=== PATIENT | male | born 1985 | race Caucasian/White ===

== ENCOUNTER 2023-12-29 03:43 | Inpatient (IN) | payer MEDICAID, SELFPAY ==
--- NOTE | 2023-12-29 | ECG_ITS ---
Test Reason : chest pain Blood Pressure : / mmHG Vent. Rate : 086 BPM Atrial Rate : 086 BPM P-R Int : 180 ms QRS Dur : 100 ms QT Int : 342 ms P-R-T Axes : 047 -17 021 degrees QTc Int : 409 ms Normal sinus rhythm Normal ECG No previous ECGs available Referred By: Generic ED Physician Electronically Signed By:Jose Merlos
--- NOTE | ~2023-12-29 | XR_ITS ---
EXAMINATION: XR chest 1V CLINICAL INFORMATION: Reason for Exam sob/flu COMPARISON: No prior chest x-ray available. TECHNIQUE: Single portable frontal view. Tubes and lines: None Lungs and pleura: Opacity probably infiltrate/atelectasis right lung base, possible right pleural effusion.. Heart and mediastinum: The mediastinum is within normal limits.. Bones/soft tissue: Skeletal structures included are normal for patient's age. XR/XR chest 1V IMPRESSION: 1. Opacity probably infiltrate/atelectasis right lung base, possible right pleural effusion. 2. Consider follow-up chest x-ray one month after completion of treatment.
--- NOTE | ~2023-12-29 | CT_ITS ---
EXAMINATION: CT chest wo IV con. CLINICAL INFORMATION: Reason for Exam Hypoxia right pneumonia/fusion COMPARISON: Chest x-ray same day earlier TECHNIQUE: Multidetector volumetric CT imaging of the chest was done. Axial MIP volume rendering provided. Sagittal and coronal reformatted images were obtained. This CT examination was performed using dose optimization techniques as appropriate, variously including the following: *Automated exposure control *Adjustment of mA and/or kV according to patient size (this includes techniques or standardized protocols for targeted exams where dose is matched to indication/reason for exam; i.e. extremities or head) *Use of iterative reconstruction technique CONTRAST: Noncontrasted study. DLP: 400 mGy-cm FINDINGS: TABLE TENDER SLUDGE: LINES/TUBES: Supervising Fire Marshal reviewed, no lines. LUNGS: Lung parenchyma: There is dense consolidation infiltrate with air bronchogram involving middle lobe and right lower lobe, mild patchy infiltrates of the right upper lobe, the pattern is most likely pneumonia. Lung nodules/masses: Nodular opacity left upper lobe 1 cm, this could be another patchy infiltrate given the disease of the right lung versus lung nodule. Otherwise left lung is mostly spared. AIRWAYS: Trachea and bronchi are normal. PLEURA: Negative trace amount of right pleural effusion. No pneumothorax. MEDIASTINUM AND ANTHONY: There is rather difficult to assess for lymphadenopathy given the lack of contrast however there are detected enlarged mediastinal lymph node measuring 1.2 x 1.7 cm on image 16 series 2. Fullness of the right anthony probably underlying hilar adenopathy difficult to distinguish from adjacent vessels. VESSELS: HEART AND PERICARDIUM: Thoracic aorta is normal in size. Heart is normal in size. No pericardial effusion. Pulmonary arteries are normal in size. LOWER NECK, AXILLA: The visualized thyroid gland is unremarkable. No axillary mass or adenopathy. VISUALIZED ABDOMEN: Unremarkable CHEST WALL AND BONES: No chest wall mass. The visualized bony thorax is within normal limits. CT/CT chest wo IV con IMPRESSION: 1. Dense consolidation right middle lobe and right lower lobe, mild patchy infiltrates of the right upper lobe, the pattern is most likely pneumonia. 2. There is a nodular opacity left upper lobe 1 cm, this could be infiltrate given the disease of the right lung versus lung nodule. Attention to short-term follow-up chest CT in 3 months recommended. 3. Trace amount of right pleural effusion. 4. Mediastinal lymphadenopathy. Fullness of the right anthony probably underlying hilar adenopathy difficult to distinguish from adjacent vessels.
[2023-12-29 03:55] VITALS: BP 157/96; PULSE 89; RESP 18; TEMP 36.9; O2SAT 98; BMI 37.9
--- NOTE | 2023-12-29 04:20 | MHC.EDTECH ---
Patient ekg taken and was read by Provider ,blood drawn and sent to lab ,Patient refused covid swab ,stated he does not think Covid is real .
[2023-12-29 04:21] LABS: MANUAL DIFF FLAG NO
[2023-12-29 04:22] LABS: Basophils Percent Auto 0.2 % (0-2); Eosinophils Percent Auto 0.1 % (0-4); Hematocrit 43.9 % (42.0-52.0); Hemoglobin 14.9 g/dl (14.0-18.0); Imm Gran Abs Auto 0.02 X10*3/uL (0.00-0.03); Imm Gran Pct Auto 0.2 % (0.0-0.4); Lymphocytes Absolute Auto 1.8 X10*3/uL (1.2-4.9); Lymphocytes Percent Auto 20.6 % (20-40); Mean Corpuscular HGB Conc 33.9 g/dl (31.0-36.0); Mean Corpuscular Hemoglobin 28.1 pg (27.0-33.0); Mean Corpuscular Volume 82.7 fL (80.0-98.0); Mean Platelet Volume 9.2 fL (9.4-12.4); Monocytes Absolute Auto 0.5 X10*3/uL (0.1-1.2); Monocytes Percent Auto 5.7 % (2-11); Neutrophils Absolute Auto 6.3 x10*3/uL (2.0-8.3); Neutrophils Percent Auto 73.2 % (45-73); Platelet Count 181 X10*3/uL (160-400); Red Blood Count 5.31 X10*6/uL (4.60-5.80); Red Cell Distribution Width 12.3 % (11.0-16.0); White Blood Count 8.6 X10*3/uL (4.8-10.8)
[2023-12-29 04:39] LABS: Alanine Aminotransferase 55 U/L (0-40); Albumin Level 4.7 g/dL (3.5-5.0); Alkaline Phosphatase 69 U/L (39-117); Anion Gap 17 (12-20); Aspartate Amino Transferase 46 U/L (5-37); Bilirubin Total 0.7 mg/dL (0.0-1.0); Blood Urea Nitrogen 15 mg/dL (9-16); Calcium 9.3 mg/dL (8.4-10.2); Carbon Dioxide 23 mmol/L (22-29); Chloride 102 mmol/L (96-108); Creatinine Clr Calc Pharmacy 135.1; Estimated Glomerular Filt Rate > 60; Ethanol < 10 mg/dL; Glucose Random 88 mg/dL (60-115); Potassium 3.9 mmol/L (3.3-5.1); Sodium 138 mmol/L (135-145); Total Protein 8.7 g/dL (6.5-8.0)
[2023-12-29 04:42] LABS: Troponin-I High Sensitivity < 2.7 ng/L (<3.5-35.0)
--- NOTE | 2023-12-29 05:13 | ED.PSYCH ---
HPI - Psych General Chief Complaint: Psychiatric Symptoms Stated Complaint: hallucination/paranoia, endorses CP Time Seen by Provider: 12/29/23 04:44 Source: patient Mode of arrival: ambulatory Limitations: no limitations History of Present Illness HPI Narrative: 38 yo male with PMH of depression and substance abuse here with c/o SI and drug abuse some vague chest pains came here from [place] to do drugs he states has been using heroin and crack no IVDA now states he is hallucinating. He states his left him and he lost his kids. He hasn't taken his suboxone in 2 days. MD complaint: suicidal ideation, feels depressed, anxiety, substance abuse and hallucinations Onset (ago): day(s) (2) Duration: intermittent History of same: Yes Relieving factors: none Exacerbating factors: drug use Context: recent drug abuse and significant life stressor Associated psychiatric symptoms: suicidal ideation, auditory hallucinations and visual hallucinations Associated symptoms: denies other symptoms Treatments prior to arrival: none If self harm: admits thoughts of self harm Related Data Home Medications Medication Instructions Recorded Confirmed No Known Home Meds 12/29/23 12/29/23 Allergies Allergy/AdvReac Type Severity Reaction Status Date / Time No Known Allergies Allergy Verified 12/29/23 03:55 Review of Systems Review of Systems: Constitutional : No Fever, No Chills ENT/Mouth : No Ear Pain, No Nasal Congestion, No sore throat Eyes: No Eye Pain, No Swelling, No Redness Cardiovascular : pos Chest Pain, No SOB Respiratory : No Cough, No Sputum, No Dyspnea Gastrointestinal : No Nausea, No Vomiting, No Diarrhea, No Hematochezia, No Melena Genitourinary : No Dysuria, No Urinary Frequency, No Hematuria Musculoskeletal : No Myalgias Skin : No Skin Lesions, No rash Neuro : No Weakness, No Numbness, No Paresthesias, No Dizziness, No Headache Psych : positive Anxiety, positive Depression, positive SI no HI, pos AH Heme/Lymph: No Lymphadenopathy Endocrine : No Polyuria, No Polydipsia All other systems reviewed and are negative PMFSH Past Medical History Attestation statement: The following information was validated with the patient. Medical History Active substance abuse Social History Social History (Updated 12/29/23 @ 05:16 by Jeannette Fernando DO) Patient Tobacco Use Status: Current someday Tobacco user Substance Use Type: Crack/Cocaine and Heroin Advance Directives: No Advance Directives Information Provided: No Physical Exam Vital Signs: Vital Signs: Last Vital Signs Temp 98.4 F 12/29/23 03:55 Pulse 89 12/29/23 03:55 Resp 18 12/29/23 03:55 BP 157/96 H 12/29/23 03:55 Pulse Ox 98 12/29/23 03:55 O2 Del Method Room Air 12/29/23 03:55 BMI result Body Mass Index 37.9 Appearance: Alert. Oriented X3. No acute distress. Agitated at times Eyes: Pupils equal, round and reactive to light. ENT: Pharynx normal. Neck: Normal inspection. Neck supple. CVS: Normal heart rate and rhythm. Pulses normal. Respiratory: No respiratory distress. Breath sounds normal. Abdomen: Soft and nontender. Skin: Skin warm and dry. Normal skin color. Normal skin turgor. Extremities: No lower extremity edema. No calf ttp Neuro: Oriented X 3. No motor deficit. No sensory deficit. CN2-12 intact Medications Administered Discontinued Medications Generic Name Dose Route Start Last Admin Trade Name Freq PRN Reason Stop Dose Admin Lorazepam 2 mg 12/29/23 05:11 12/29/23 05:16 Lorazepam 1 Mg Tablet PO 12/29/23 05:12 2 mg ONCE ONE Administration Olanzapine 5 mg 12/29/23 05:11 12/29/23 05:16 Olanzapine Odt 10 Mg Tab.Rapdis TRANSLINGU 12/29/23 05:12 5 mg ONCE ONE Administration Medical Decision Making Medical Decision Making [facility] Narrative: 38 yo male with PMH of drug abuse and depression here with c/o using drugs and losing his family - at this time labs, PO medications and CARE team consult. Differential Diagnosis Differential Diagnoses: The differential diagnosis associated with the presentation includes depression, substance abuse disorder Admission/Observation Consideration of admission/observation: Escalation of care including admission/observation considered observation started at 514am - PO medications ordered will need to be observed until CARE team can assess the patient for possible inpatient stay. Lab Data [facility] Lab Attestation statement: I reviewed the patient's lab results. 12/29/23 04:17 12/29/23 04:17 Labs: Lab Results 12/29/23 12/29/23 Range/Units 04:17 05:19 WBC 8.6 (4.8-10.8) X10*3/uL RBC 5.31 (4.60-5.80) X10*6/uL Hgb 14.9 (14.0-18.0) g/dl Hct 43.9 (42.0-52.0) % MCV 82.7 (80.0-98.0) fL MCH 28.1 (27.0-33.0) pg MCHC 33.9 (31.0-36.0) g/dl RDW 12.3 (11.0-16.0) % Plt Count 181 (160-400) X10*3/uL MPV 9.2 L (9.4-12.4) fL Immature Gran % (Auto) 0.2 (0.0-0.4) % Neut % (Auto) 73.2 H (45-73) % Lymph % (Auto) 20.6 (20-40) % [place] % (Auto) 5.7 (2-11) % Eos % (Auto) 0.1 (0-4) % Baso % (Auto) 0.2 (0-2) % Lymph # (Auto) 1.8 (1.2-4.9) X10*3/uL [place] # (Auto) 0.5 (0.1-1.2) X10*3/uL Eos # (Auto) 0.0 (0.0-0.4) X10*3/uL Baso # (Auto) 0.0 (0.0-0.2) X10*3/uL Abs Immat Gran (auto) 0.02 (0.00-0.03) X10*3/uL Absolute Neuts (auto) 6.3 (2.0-8.3) x10*3/uL Absolute Nucleated RBC 0.000 (0.0-0.012) X10*3/uL Nucleated RBC % (auto) 0.0 (0.0-0.2) /100WBC Sodium 138 (135-145) mmol/L Potassium 3.9 (3.3-5.1) mmol/L Chloride 102 (96-108) mmol/L Carbon Dioxide 23 (22-29) mmol/L Anion Gap 17 (12-20) BUN 15 (9-16) mg/dL Creatinine 0.84 (0.5-1.4) mg/dL Estim Creat Clear Calc 135.1 Estimated GFR > 60 Random Glucose 88 (60-115) mg/dL Calcium 9.3 (8.4-10.2) mg/dL Total Bilirubin 0.7 (0.0-1.0) mg/dL AST 46 H (5-37) U/L ALT 55 H (0-40) U/L Alkaline Phosphatase 69 (39-117) U/L Troponin I High Sens < 2.7 (<3.5-35.0) ng/L Total Protein 8.7 H (6.5-8.0) g/dL Albumin 4.7 (3.5-5.0) g/dL Ethyl Alcohol < 10 mg/dL COVID-19 (MICHAEL) Negative (Negative) COVID-19 Clin Com See Note Independent Interpretation I performed an independent interpretation of an: EKG Interpretation: Rate: 86 Rhythm: NSR Lincoln: left Normal P waves. Normal SCOTT. Normal QRS complex. ST T wave : normal no BRANDT qTC: 409 prior studies: no acute ischemia The study has been interpreted contemporaneously by me. . Social Determinants Patient?s care significantly limited by Social Determinants of Health including: Inadequate housing, Problems related to primary support group and Unemployment Discharge Plan Discharge Clinical Impression: Active substance abuse Patient Disposition: Still a Patient Prescriptions: No Action No Known Home Meds Interventions: Lea-Suicide Risk Severity Scale Last Done: 12/29/23 04:37
[2023-12-29] MEDS: LORazepam 1 MG TABLET 2 MG PO (05:16)
[2023-12-29] MEDS: OLANZapine ODT 10 MG TAB.RAPDIS 5 MG TRANSLINGU (05:16)
--- NOTE | 2023-12-29 05:27 | PC.NURSE ---
PT arrived from waiting room. Belongings inventoried and secured by security. PT changed over into [facility] gown and oriented to unit. PT tearful and noting SI r/t leaving him three days ago due to drug use. PT denies a plan at this time. Safety precautions in place. Plan of care ongoing.
[2023-12-29 05:42] LABS: COVID-19 Test Negative (Negative); IDNOW Serial# 152EDE1D
[2023-12-29 05:48] LABS: Appearance Urine Clear; Color Urine Dark Yellow; Glucose Urine UA Negative (Negative); Leukocyte Esterase Urine Negative (Negative); Nitrite Urine Negative (Negative); PH 5.5 (5.0-9.0); Specific Gravity - Urine >= 1.030 (1.005-1.025); UMIC TRIGGER UACC YES; Urine Blood Trace (Negative); Urine Ketones 80 mg/dL (Negative); Urine Protein 30 (1+) mg/dL (Neg-Trace)
[2023-12-29 05:53] LABS: Bacteria Urine None Seen (None Seen); Hyaline Casts Urine 0-2 /LPF (0-2); Squamous Epithelial Cell Urine 0-2 /HPF (0-2); WBC Urine 0-5 /HPF (0-5)
[2023-12-29 05:59] LABS: Amphetamine Screen Urine Not Detected (Not Detect); Barbiturates, Urine Not Detected (Not Detect); Benzodiazepines Screen Urine Not Detected (Not Detect); Cannabinoid Screen Urine Not Detected (Not Detect); Cocaine Screen Urine POSITIVE (Not Detect); Fentanyl, urine POSITIVE (Not Detect); Opiate Screen Urine POSITIVE (Not Detect); Phencyclidine Screen Urine Not Detected (Not Detect)
--- NOTE | 2023-12-29 09:14 | PC.NURSE ---
pt sleeping but moaning occasionally in his sleep, attempted x 3 to talk with pt about how he is feeling, pt awakens briefly and chooses not to speak with me, Zayra from recovery and the CARE team also attempted but pt did not speak with them either, pt had po meds at 0500, will continue to attempt to speak with him but will allow him to sleep for now
--- NOTE | 2023-12-29 14:15 | PC.NURSE ---
pt continues to sleep, awakens briefly and then back to sleep without engaging
[2023-12-29 14:21] VITALS: BP 148/73; PULSE 120; RESP 16; TEMP 38.3; O2SAT 97
--- NOTE | 2023-12-29 14:29 | MHC.CARE ---
This proposal writer reached out to [facility] for collateral contacts/ history. They report no emergency contact on file from his assessment in 2021, for which he was deemed appropriate for detox, but ultimately declined and was discharged.?
[2023-12-29] MEDS: Acetaminophen 325 MG TABLET 975 MG PO ×2 (14:35→21:27)
[2023-12-29 14:53] LABS: IDNOW Serial# 9DB6401D; Influenza A Positive (Negative); Influenza B2 Negative (Negative)
--- NOTE | 2023-12-29 14:53 | PC.NURSE ---
pt awoke and c/o body aches and withdrawl from opiates, recovery team spoke with him, pt tachy and febrile and apap given and flu swab done, alert, speech clear, CARE team aware that he is awake
--- NOTE | 2023-12-29 14:59 | MHC.RECOVRN ---
Met with pt in [facility] after RN reached out regarding pts withdrawal symptoms. Pt had presented to the ED for hallucinations and SI, awaiting CARE Team evaluation. Pt laying down, restless, appears uncomfortable. Pt reports withdrawal symptoms including restlessness and body aches. Pt reports he had been taking Suboxone, 8 mg daily, last dose 3 days ago. Per [facility], no fill history for Suboxone. Pt reports he has used 3/4 bag heroin/fentanyl over the past 3 days. Discussed MOUD/options to address current withdrawal symptoms. Pt agreeable to methadone. Discussed with RN and provider. Plan to administer 20 mg methadone.
[2023-12-29] MEDS: methADONE HCl 20 MG/2 ML ORAL.CONC PO (15:07)
--- NOTE | 2023-12-29 15:11 | PC.NURSE ---
Assumed care of patient at 1500, patient moved from 7 to BH 1 due to being flu A positive. Patient appears tired and states he feels unwell. This RN administered Methadone 20mg PO per MAR. patient is currently resting on stretcher, respirations even and unlabored, skin pwd, alert and oriented x4. Awaiting plan of care
[2023-12-29 15:19] VITALS: BP 105/88; PULSE 117; RESP 18; TEMP 38.6; O2SAT 95
--- NOTE | 2023-12-29 15:21 | PC.NURSE ---
patients vitals repeated due to pulse and temp being elevated, no improvement. Dr. Payton notified via [employer] text
[2023-12-29] MEDS: Ibuprofen 400 MG TABLET PO (15:49)
--- NOTE | 2023-12-29 19:03 | PC.NURSE ---
patient appears to remain at rest at present respirations are even and unlabored patient appears in no distress
--- NOTE | 2023-12-29 20:37 | MHC.CARE ---
CARE Team evaluation complete. Pt will be a Dual Diagnosis Bedsearch and has been put on a Section 12A. Pt is voluntary. ED provider, POD RN and Pt are aware.
[2023-12-29 21:13] VITALS: BP 111/70; PULSE 116; RESP 18; TEMP 37.4; O2SAT 93
[2023-12-29] MEDS: hydrOXYzine HCL 50 MG TABLET PO (21:28)
[2023-12-29] MEDS: Cyclobenzaprine HCl 10 MG TABLET PO (21:31)
[2023-12-30] MEDS: Acetaminophen 325 MG TABLET 650 MG PO ×3 (04:58→22:46)
[2023-12-30] MEDS: Cyclobenzaprine HCl 10 MG TABLET PO (04:59)
[2023-12-30] MEDS: hydrOXYzine HCL 50 MG TABLET PO (05:00)
[2023-12-30 09:58] VITALS: BP 147/78; PULSE 110; RESP 22; TEMP 39.2; O2SAT 86
--- NOTE | 2023-12-30 10:24 | PC.NURSE ---
assumed care of pt at 0700. pt found to be febrile at 102.5 oral, and hypoxic 86% on room air. pt stated he feels like shit , vomited overnight on the floor, and was c/o chest pain with breathing. rr and pulse were also elevated. pt was brought over to the main ED, placed on bedside monitor and on 3.5L O2 sating 92-95%. Dr. Benites aware and ordering tylenol and chest x ray for possible pneumonia. plan of care ongoing.
[2023-12-30] MEDS: 0.9 % Sodium Chloride 1,000 ML 999 ML IV (11:13)
[2023-12-30] MEDS: Ibuprofen 600 MG TABLET PO (11:13)
--- NOTE | 2023-12-30 11:44 | PC.NURSE ---
patient difficult stick, able to get IV access in left hand, unable to obtain blood cultures/lactic. will reattempt. medicated per the MAR for fever
[2023-12-30 12:03] LABS: MANUAL DIFF FLAG NO
[2023-12-30 12:09] LABS: Basophils Percent Auto 0.1 % (0-2); Hematocrit 40.8 % (42.0-52.0); Hemoglobin 13.8 g/dl (14.0-18.0); Imm Gran Abs Auto 0.16 X10*3/uL (0.00-0.03); Imm Gran Pct Auto 1.8 % (0.0-0.4); Lymphocytes Absolute Auto 0.8 X10*3/uL (1.2-4.9); Lymphocytes Percent Auto 8.6 % (20-40); Mean Corpuscular HGB Conc 33.8 g/dl (31.0-36.0); Mean Corpuscular Hemoglobin 27.4 pg (27.0-33.0); Mean Platelet Volume 9.9 fL (9.4-12.4); Monocytes Absolute Auto 0.3 X10*3/uL (0.1-1.2); Monocytes Percent Auto 2.7 % (2-11); Neutrophils Absolute Auto 7.9 x10*3/uL (2.0-8.3); Neutrophils Percent Auto 86.8 % (45-73); Platelet Count 143 X10*3/uL (160-400); Red Blood Count 5.04 X10*6/uL (4.60-5.80); Red Cell Distribution Width 12.5 % (11.0-16.0); White Blood Count 9.1 X10*3/uL (4.8-10.8)
[2023-12-30 12:20] VITALS: BP 112/70; PULSE 101; RESP 24; TEMP 37.9; O2SAT 94
[2023-12-30] MEDS: cefTRIAXone sodium 1 GM in 0.9 % Sodium Chloride 50 ML IV (12:22)
--- NOTE | 2023-12-30 12:25 | PC.NURSE ---
cultures and lactic acid obtained. patient taken to ct scan, medicated per the MAR. continues to rest quietly in room with call lucero within reach
[2023-12-30 14:12] VITALS: BP 103/62; PULSE 84; RESP 18; TEMP 37.1; O2SAT 94
--- NOTE | 2023-12-30 14:41 | PM.IMHP ---
History of Present Illness Date of Service: 12/30/23 <AMANUEL Hinojosa - Last Filed: 12/30/23 15:06> Attending physician on admission: Sondra Becerra <AMANUEL Hinojosa - Last Filed: 12/30/23 15:06> Chief Complaint: hallucinations/paranoia, chest pain <AMANUEL Hinojosa - Last Filed: 12/30/23 15:06> 38 year old male with history of polysubstance abuse presented to the ED earlier yesterday morning due to hallucination, paranoia, depression, and vague chest pains. He had reportedly been in the area to do drugs. Reports smoking crack cocaine prior to arrival. Denies any other substance use including any history of IVDA. No etoh use. Does smoke 1ppd cigarettes. He had been under observation in the ED awaiting placement for dual diganosis after evaluation by care team. He states he has had productive cough with pleuritic chest pain ongoing x several days. No sob, lightheadedness, palpitations, congestion, sore throat, abd pain, n/v/d. He is reporting sweats and chills. Reports having been on suboxone but there are no records of this. Evaluated by addiction team yesterday and was started on 20mg methadone. He is still reporting feeling out of it but is denying any active hallucinations, active SI, HI and is oriented x4. Had made reports of SI to care team and is on section 12. Vitals signficant for fevers up to 102.5, tachycardia to 120, tachypnea and hypoxia to 86%, now on 2L maintaining oximetry 94%. No leukocytosis. Renal function and lytes normal. Lactic acid normal. AST 46/ALT 55. Utox positive for fentanyl, opiates, and cocaine. Chest CT shows dense consolidation RML and RLL with patchy infiltrates of the RUL. THere is also a nodular opacity ROBERT 1ch, possibly infiltrate vs nodule. In the ED, has received flexeril, tylenol, ibuprofen, ceftriaxone, hydroxyzine, methadone, and 1L IVF. <AMANUEL Hinojosa - Last Filed: 12/30/23 15:06> Review of Systems Review of Systems: General: No fevers, malaise, unintentional weight loss. +chills/sweats HEENT: No blurred vision, diplopia. No sore throat, nasal congestion, rhinorrhea, sinus pain, ear pain Cardiovascular: +chest pain. No palpitations, or leg edema Respiratory: +cough. No shortness of breath, wheezing GI: No abdominal pain, nausea, vomiting, diarrhea, constipation, melena, hematochezia : No dysuria, hematuria, increased urinary frequency, decreased urinary output MSK: No myalgia, back pain Neuro: No headaches, weakness, paresthesias Skin: No rashes or lesions <AMANUEL Hinojosa - Last Filed: 12/30/23 15:06> [facility] Medical History: Medical History Active substance abuse <AMANUEL Hinojosa - Last Filed: 12/30/23 15:06> Social History: Social History Patient Tobacco Use Status: Current someday Tobacco user Substance Use Type: Crack/Cocaine and Heroin Advance Directives: No Advance Directives Information Provided: No Healthcare Proxy: No Guardian: No <AMANUEL Hinojosa - Last Filed: 12/30/23 15:06> Meds Allergies/Adverse reactions: Allergies Allergy/AdvReac Type Severity Reaction Status Date / Time No Known Allergies Allergy Verified 12/29/23 03:55 <AMANUEL Hinojosa - Last Filed: 12/30/23 15:06> Active Medications: Current Medications Acetaminophen (Acetaminophen 325 Mg Tablet) 650 mg PO Q6H PRN PRN Reason: Pain, Mild (Pain Scale 1-3) Enoxaparin Sodium (Enoxaparin Sodium 40 Mg/0.4 Ml Syringe) 40 mg SUBCUT Q24H [facility] Piperacillin Sod/Tazobactam (Sod 4.5 gm/ Sodium Chloride) 100 mls @ 200 mls/hr IV Q6H [facility] Methadone HCl (Methadone Hcl 20 Mg/2 Ml Oral.Conc) 20 mg PO DAILY [facility] Ondansetron HCl (Ondansetron Hcl 4 Mg/2 Ml Vial) 4 mg IVPUSH Q8H PRN PRN Reason: Nausea and Vomiting Pharmacy Consult (Consult Rx Vancomycin Dosing) 1 each MISCELLANE DAILY PRN PRN Reason: Consult order Senna (Sennosides 8.6 Mg Tablet) 17.2 mg PO BEDTIME PRN PRN Reason: Constipation Sodium Chloride (0.9 % Sodium Chloride Flush 3 Ml Syringe) 3 ml IVFLUSH QSHIFT [facility] <AMANUEL Hinojosa - Last Filed: 12/30/23 15:06> Home medications: Home Medications Medication Instructions Recorded Confirmed Last Taken Type No Known Home Meds 12/29/23 12/29/23 Unknown History <AMANUEL Hinojosa - Last Filed: 12/30/23 15:06> Physical Exam Vital Signs and Narrative: Vital Signs: Last Vital Signs Temp 98.7 F 12/30/23 14:12 Pulse 84 12/30/23 14:12 Resp 18 12/30/23 14:12 BP 103/62 12/30/23 14:12 Pulse Ox 94 12/30/23 14:12 O2 Del Method Nasal Cannula 12/30/23 14:12 O2 Flow Rate 2 12/30/23 14:12 BMI result Body Mass Index 37.9 <AMANUEL Hinojosa - Last Filed: 12/30/23 15:06> Constitutional - Awake and Alert, No apparent distress Eyes - PERRLA, EOMI Cardiovascular - S1S2, RRR, No edema Respiratory - Normal lung expansion, Normal respiratory effort, No respiratory distress, CTA bilaterally Gastrointestinal - NT / ND; +BS; No rebound or guarding Extremities - no calf tenderness bilaterally, no swelling Skin - Warm/Dry Neurological - Alert & oriented x3 Psychological - Appropriate affect <AMANUEL Hinojosa - Last Filed: 12/30/23 15:06> Results Labs CBC and Chem 7: 12/30/23 11:57 12/29/23 04:17 <AMANUEL Hinojosa - Last Filed: 12/30/23 15:06> Labs: Laboratory Results - last 24 hr 12/29/23 12/30/23 12/30/23 14:31 11:44 11:57 MCV 81.0 MCH 27.4 MCHC 33.8 RDW 12.5 Plt Count 143 L MPV 9.9 Immature Gran % (Auto) 1.8 H Neut % (Auto) 86.8 H Lymph % (Auto) 8.6 L [place] % (Auto) 2.7 Eos % (Auto) 0.0 Baso % (Auto) 0.1 Lymph # (Auto) 0.8 L [place] # (Auto) 0.3 Eos # (Auto) 0.0 Baso # (Auto) 0.0 Abs Immat Gran (auto) 0.16 H Absolute Neuts (auto) 7.9 Absolute Nucleated RBC 0.000 Nucleated RBC % (auto) 0.0 Lactic Acid 2.0 Influenza Type A (YULIA) Positive A Influenza Type B (YULIA) Negative Influenza A & B Note See Note <AMANUEL Hinojosa - Last Filed: 12/30/23 15:06> Imaging Radiologist's Impressions: Impressions Chest X-Ray 12/30/23 10:32 IMPRESSION: 1. Opacity probably infiltrate/atelectasis right lung base, possible right pleural effusion. 2. Consider follow-up chest x-ray one month after completion of treatment. Chest CT 12/30/23 12:28 IMPRESSION: 1. Dense consolidation right middle lobe and right lower lobe, mild patchy infiltrates of the right upper lobe, the pattern is most likely pneumonia. 2. There is a nodular opacity left upper lobe 1 cm, this could be infiltrate given the disease of the right lung versus lung nodule. Attention to short-term follow-up chest CT in 3 months recommended. 3. Trace amount of right pleural effusion. 4. Mediastinal lymphadenopathy. Fullness of the right brianna probably underlying hilar adenopathy difficult to distinguish from adjacent vessels. <AMANUEL Hinojosa - Last Filed: 12/30/23 15:06> Assessment and Plan (1) Multifocal pneumonia: Status: Acute <AMANUEL Hinojosa - Last Filed: 12/30/23 15:06> (2) Acute hypoxemic respiratory failure: Status: Acute <AMANUEL Hinojosa - Last Filed: 12/30/23 15:06> 38 year old male with history of polysubstance abuse admitted for multifocal pneumonia with acute hypoxemic respiratory failure. #Multifocal pneumonia with acute hypoxemic respiratory failure with sepsis -febrile to 102.5, tachycardic, tachypneic. No lactic acidosis or end-organ damage. No severe sepsis or shock -chest CT shows dense consolidation of the right middle and right lower lobes with patchy infiltrate of the right upper lobe and possible infiltrate of the left upper lobe versus pulmonary nodule -IV vancomycin and Zosyn -continue supplemental O2 to maintain oximetry greater than 92% -sputum culture, nasal MRSA swab, strep pneumo antigen, Legionella antigen pending -symptomatic management -follow CBC, cultures # polysubstance abuse -urine tox screen positive for fentanyl, opiates, cocaine -denies IV drug abuse but check HIV, hepatitis panel -per addiction Medicine team, methadone 20 mg daily -addiction med consult -monitor on cows #Depression/hallucinations/SI -on section 12a per careteam -sitter consult # cigarette smoker -cessation advised -declines NRT #ROBERT opacity -?infiltrate vs nodule -recommended 3month outpt follow up ct DVT prophaylxis- lovenox full code pt requires inpt stay at least 2 midnights for management of multifocal pneunonia with acute hypoxemic respiratory failure in pt with history drug abuse requiring board spectrum abx awaiting cultures and supplemental O2 <AMANUEL Hinojosa - Last Filed: 12/30/23 15:06> 38 year old male with history of polysubstance abuse admitted for multifocal pneumonia with acute hypoxemic respiratory failure. #Multifocal pneumonia with acute hypoxemic respiratory failure with sepsis -febrile to 102.5, tachycardic, tachypneic. No lactic acidosis or end-organ damage. No severe sepsis or shock -chest CT shows dense consolidation of the right middle and right lower lobes with patchy infiltrate of the right upper lobe and possible infiltrate of the left upper lobe versus pulmonary nodule -IV vancomycin and Zosyn -continue supplemental O2 to maintain oximetry greater than 92% -sputum culture, nasal MRSA swab, strep pneumo antigen, Legionella antigen pending -symptomatic management -follow CBC, cultures # polysubstance abuse -urine tox screen positive for fentanyl, opiates, cocaine -denies IV drug abuse but check HIV, hepatitis panel -per addiction Medicine team, methadone 20 mg daily -addiction med consult -monitor on cows #Depression/hallucinations/SI -on section 12a per careteam -sitter consult # cigarette smoker -cessation advised -declines NRT #ROBERT opacity -?infiltrate vs nodule -recommended 3month outpt follow up ct DVT prophaylxis- lovenox full code pt requires inpt stay at least 2 midnights for management of multifocal pneunonia with acute hypoxemic respiratory failure in pt with history drug abuse requiring board spectrum abx awaiting cultures and supplemental O2 Addendum to history and physical by the advanced practice provider, AMANUEL Marshall I interviewed and examined the patient. I discussed their presentation and management with the BON. I reviewed the history and physical and agree with the documentation, with the following additions and corrections: 38yo M with inhalation polysubstance abuse presenting with cough x6d and came to the ED with hallucinations, paranoia, depression. Was awaiting placement for dual diagnosis but then developed fever to 102.5, tachycardia, and hypoxia requiring 2L. Found to have influenza and CT shows dense RML/RLL infiltrate, patchy RUL infiltrate. Suspicion for sepsis from post-influenza pnuemonia. Will check BCx, trend PCT, check HIV status, check MRSA swab, give Zosyn + vanco + Tamiflu. <Sondra Becerra MD - Last Filed: 12/30/23 15:31> Quality Stroke Does the patient have a stroke diagnosis?: No <AMANUEL Hinojosa - Last Filed: 12/30/23 15:06> VTE Prior VTE?: No <AMANUEL Hinojosa - Last Filed: 12/30/23 15:06> VTE Risk Level:: Medical - moderate - high <AMANUEL Hinojosa - Last Filed: 12/30/23 15:06> VTE Device Contraindication: Treatment Not Indicated <AMANUEL Hinojosa - Last Filed: 12/30/23 15:06> VTE Drug Contraindication: N/A - Med Ordered <AMANUEL Hinojosa - Last Filed: 12/30/23 15:06>
--- NOTE | 2023-12-30 14:51 | PHA.MEDREC ---
Pharmacy Consult ? Medication Reconciliation Pharmacy has completed the medication reconciliation. reviewed med rec done by nursing.
--- NOTE | 2023-12-30 15:09 | PHA.PROG ---
Admission Date/Time: December 30, 2023 14:34 Indication: RESPIRATORY INFECTION Weight in k.594 kg Adjusted body weight in K.9 [place] body weight in Kg: Obesity Dosing Indication % IBW: Serum Creatinine - Last 168 Hours 12/29/23 04:17 Creatinine 0.84 Estimated CrCl and GFR - Last 168 Hours 12/29/23 04:17 Estim Creat Clear Calc 135.1 Estimated GFR > 60 Vancomycin Loading Dose: 2000 MG Current Vancomycin Dosing Regimen:1250 MG Q 12 HOURS Vancomycin Monitoring using AUC goal of 400 - 600 range with trough as surrogate marker: PREDICTED AUC 446 Date and Time for next Vancomycin Level to be drawn:01/01/24 0100 Pharmacist Comments on Vancomycin Plan: Vancomycin dosing will take advantage of [employer] as a clinical decision support tool that uses Bayesian modeling to calculate individual patient's pharmacokinetic parameters and forecast the patient's drug concentration time course with the target goal AUC 24 range of 400 - 600 mg/L/hr.
--- NOTE | 2023-12-30 15:59 | MHC.RECOVRN ---
Briefly met with pt in ED22 to follow up after pt medically admitted and Addiction Medicine consult received. Pt laying in bed, asleep, wakes to voice, appears diaphoretic and drowsy. Pt denies current withdrawal symptoms. Will allow pt to rest. Discussed with Shima Steen APRN.
[2023-12-30 16:01] LABS: Alanine Aminotransferase 35 U/L (0-40); Albumin Level 3.8 g/dL (3.5-5.0); Alkaline Phosphatase 52 U/L (39-117); Anion Gap 18 (12-20); Aspartate Amino Transferase 36 U/L (5-37); Bilirubin Direct 0.4 mg/dL (0.0-0.5); Bilirubin Total 0.7 mg/dL (0.0-1.0); Blood Urea Nitrogen 22 mg/dL (9-16); Calcium 8.7 mg/dL (8.4-10.2); Carbon Dioxide 22 mmol/L (22-29); Chloride 98 mmol/L (96-108); Creatinine Clr Calc Pharmacy 77.7; Estimated Glomerular Filt Rate 54; Glucose Random 98 mg/dL (60-115); Potassium 3.8 mmol/L (3.3-5.1); Sodium 134 mmol/L (135-145); Total Protein 7.9 g/dL (6.5-8.0)
[2023-12-30 16:06] VITALS: BP 112/64; PULSE 78; RESP 16; TEMP 36.9; O2SAT 97
--- NOTE | 2023-12-30 16:13 | MHC.EDTECH ---
THIS PCT ASSUIMED CARE OF PATIENT AT 1500 ,VITALS TAKEN ,MRSA SWAB COLLECTED AND SENT TO LAB ,PATIENT SLEEPING ,NO APPARENT DISTRESS NOTED .
[2023-12-30] MEDS: Oseltamivir Phosphate 75 MG CAPSULE PO (16:20)
[2023-12-30] MEDS: 0.9 % Sodium Chloride Flush 3 ML SYRINGE IVFLUSH ×2 (16:20→20:38)
[2023-12-30] MEDS: Piperacillin Sodium/Tazobactam 3.375 GM in 0.9 % Sodium Chloride 50 ML IV (16:20)
[2023-12-30] MEDS: Enoxaparin Sodium 40 MG/0.4 ML SYRINGE SUBCUT (16:20)
[2023-12-30] MEDS: vancomycin/NS 2,000 MG/500 ML PLAST..BAG 250 MG IV (17:57)
[2023-12-30 18:45] VITALS: BMI 37.9
[2023-12-30 18:46] VITALS: BP 112/70; PULSE 84; RESP 18; TEMP 36.8; O2SAT 96
[2023-12-30] MEDS: Piperacillin Sodium/Tazobactam 4.5 GM in 0.9 % Sodium Chloride 100 ML IV (20:38)
[2023-12-30] MEDS: ondansetron HCL 4 MG/2 ML VIAL IVPUSH (23:23)
[2023-12-30] MEDS: Melatonin 3 MG TABLET 6 MG PO (23:23)
[2023-12-31] MEDS: Piperacillin Sodium/Tazobactam 4.5 GM in 0.9 % Sodium Chloride 100 ML IV ×3 (02:19→14:15)
[2023-12-31] MEDS: Oseltamivir Phosphate 75 MG CAPSULE PO ×2 (02:20→15:00)
[2023-12-31 03:16] VITALS: BP 123/65; PULSE 91; RESP 18; TEMP 37.1; O2SAT 96
[2023-12-31] MEDS: Acetaminophen 325 MG TABLET 650 MG PO ×2 (04:51→20:47)
[2023-12-31] MEDS: vancomycin HCL 1,250 MG in 0.9 % Sodium Chloride 250 ML 166.67 MG IV ×2 (05:56→17:26)
[2023-12-31 06:19] LABS: Hematocrit 36.1 % (42.0-52.0); Hemoglobin 12.2 g/dl (14.0-18.0); Mean Corpuscular HGB Conc 33.8 g/dl (31.0-36.0); Mean Corpuscular Hemoglobin 27.7 pg (27.0-33.0); Mean Corpuscular Volume 81.9 fL (80.0-98.0); Mean Platelet Volume 10.2 fL (9.4-12.4); Platelet Count 167 X10*3/uL (160-400); Red Blood Count 4.41 X10*6/uL (4.60-5.80); Red Cell Distribution Width 12.6 % (11.0-16.0); White Blood Count 8.3 X10*3/uL (4.8-10.8)
[2023-12-31 06:31] LABS: Anion Gap 13 (12-20); Blood Urea Nitrogen 26 mg/dL (9-16); Calcium 8.2 mg/dL (8.4-10.2); Carbon Dioxide 21 mmol/L (22-29); Chloride 98 mmol/L (96-108); Creatinine Clr Calc Pharmacy 64.1; Estimated Glomerular Filt Rate 43; Glucose Random 101 mg/dL (60-115); Potassium 3.7 mmol/L (3.3-5.1); Sodium 128 mmol/L (135-145)
[2023-12-31 07:17] LABS: Band Neutrophils Percent 11 % (3-5); Lymphocytes Absolute Manual 1.4 X10*3/uL (1.2-4.9); Lymphocytes Percent Manual 17 % (20-40); Monocytes Absolute Manual 0.1 X10*3/uL (0.1-1.2); Monocytes Percent Manual 1 % (2-11); Neutrophils Absolute Manual 6.8 X10*3/uL (2.0-8.3); Neutrophils Percent Manual 71 % (45-73)
[2023-12-31 07:18] LABS: Platelet Estimate NORMAL (NORMAL); Platelet Morphology Comment NORMAL; RBC Morphology NORMAL; Toxic Vacuolation PRESENT
[2023-12-31] MEDS: 0.9 % Sodium Chloride Flush 3 ML SYRINGE IVFLUSH ×3 (07:29→20:48)
--- NOTE | 2023-12-31 07:57 | P.PNIM_ITS ---
Subjective Subjective Date of Service: 12/31/23 Interval History: Seen in follow-up for influenza, multifocal pneumonia, acute hypoxemic respiratory failure Interval history: Feeling better, pleuritic chest pain improving. Still with productive cough. Does not want methadone for MAT Review of Systems Review of Systems: Yes all other systems are reviewed and are negative Physical Exam 2 Vital Signs: Vital Signs: Last Vital Signs Temp 98.7 F 12/31/23 03:16 Pulse 91 12/31/23 03:16 Resp 18 12/31/23 03:16 BP 123/65 12/31/23 03:16 Pulse Ox 96 12/31/23 03:16 O2 Del Method Nasal Cannula 12/31/23 03:16 O2 Flow Rate 2 12/31/23 03:16 BMI result Body Mass Index 37.9 Constitutional - Awake and Alert, No apparent distress Eyes - PERRLA, EOMI Cardiovascular - S1S2, RRR, No edema Respiratory - Normal lung expansion, Normal respiratory effort, No respiratory distress on 2L supplemental o2, rhonchi bilatearlly Gastrointestinal - NT / ND; +BS; No rebound or guarding Extremities - no calf tenderness bilaterally, no swelling Skin - Warm/Dry Neurological - Alert & oriented x3 Psychological - Appropriate affect Objective Data Active Medications Acetaminophen (Acetaminophen 325 Mg Tablet) 650 mg PO Q6H PRN PRN Reason: Pain, Mild (Pain Scale 1-3) Last Admin: 12/31/23 04:51 Dose: 650 mg Documented By: FARSHAD Enoxaparin Sodium (Enoxaparin Sodium 40 Mg/0.4 Ml Syringe) 40 mg SUBCUT Q24H [facility] Last Admin: 12/30/23 16:20 Dose: 40 mg Documented By: YVROSE Guaifenesin (Guaifenesin 200 Mg/10 Ml 10 Ml Liquid) 10 ml PO Q4H PRN PRN Reason: Cough Piperacillin Sod/Tazobactam (Sod 4.5 gm/ Sodium Chloride) 100 mls @ 200 mls/hr IV Q6H [facility] Last Admin: 12/31/23 07:29 Dose: 200 mls/hr Documented By: JORGE Vancomycin HCl 1,250 mg/ (Sodium Chloride) 250 mls @ 166.667 mls/hr IV Q12H [facility] Last Admin: 12/31/23 05:56 Dose: 166.67 mls/hr Documented By: FARSHAD Melatonin (Melatonin 3 Mg Tablet) 6 mg PO BEDTIME PRN PRN Reason: Insomnia Last Admin: 12/30/23 23:23 Dose: 6 mg Documented By: FARSHAD Methadone HCl (Methadone Hcl 20 Mg/2 Ml Oral.Conc) 20 mg PO DAILY [facility] Ondansetron HCl (Ondansetron Hcl 4 Mg/2 Ml Vial) 4 mg IVPUSH Q8H PRN PRN Reason: Nausea and Vomiting Last Admin: 12/30/23 23:23 Dose: 4 mg Documented By: FARSHAD Oseltamivir Phosphate (Oseltamivir Phosphate 75 Mg Capsule) 75 mg PO Q12H [facility] Stop: 01/04/24 04:01 Last Admin: 12/31/23 02:20 Dose: 75 mg Documented By: FARSHAD Pharmacy Consult (Consult Rx Vancomycin Dosing) 1 each MISCELLANE DAILY PRN PRN Reason: Consult order Senna (Sennosides 8.6 Mg Tablet) 17.2 mg PO BEDTIME PRN PRN Reason: Constipation Sodium Chloride (0.9 % Sodium Chloride Flush 3 Ml Syringe) 3 ml IVFLUSH QSHIFT [facility] Last Admin: 12/31/23 07:29 Dose: 3 ml Documented By: JORGE Labs 12/31/23 06:04 12/31/23 06:04 Labs: Laboratory Results - last 24 hr 12/30/23 12/30/23 12/30/23 11:44 11:57 15:05 MCV 81.0 MCH 27.4 MCHC 33.8 RDW 12.5 Plt Count 143 L MPV 9.9 Immature Gran % (Auto) 1.8 H Neut % (Auto) 86.8 H Lymph % (Auto) 8.6 L [place] % (Auto) 2.7 Eos % (Auto) 0.0 Baso % (Auto) 0.1 Lymph # (Auto) 0.8 L [place] # (Auto) 0.3 Eos # (Auto) 0.0 Baso # (Auto) 0.0 Abs Immat Gran (auto) 0.16 H Absolute Neuts (auto) 7.9 Absolute Nucleated RBC 0.000 Nucleated RBC % (auto) 0.0 Neutrophils % (Manual) Band Neutrophils % Lymphocytes % (Manual) Monocytes % (Manual) Abs Neuts (Manual) Lymphocytes # (Manual) Monocytes # (Manual) Toxic Vacuolation Platelet Estimate Plt Morphology Comment RBC Morphology Anion Gap 18 Estim Creat Clear Calc 77.7 Estimated GFR 54 Random Glucose 98 Lactic Acid 2.0 Calcium 8.7 D Total Bilirubin 0.7 Direct Bilirubin 0.4 AST 36 ALT 35 Alkaline Phosphatase 52 Total Protein 7.9 Albumin 3.8 12/31/23 06:04 MCV 81.9 MCH 27.7 MCHC 33.8 RDW 12.6 Plt Count 167 MPV 10.2 Immature Gran % (Auto) Cancelled Neut % (Auto) Cancelled Lymph % (Auto) Cancelled [place] % (Auto) Cancelled Eos % (Auto) Cancelled Baso % (Auto) Cancelled Lymph # (Auto) Cancelled [place] # (Auto) Cancelled Eos # (Auto) Cancelled Baso # (Auto) Cancelled Abs Immat Gran (auto) Cancelled Absolute Neuts (auto) Cancelled Absolute Nucleated RBC 0.000 Nucleated RBC % (auto) 0.0 Neutrophils % (Manual) 71 Band Neutrophils % 11 H Lymphocytes % (Manual) 17 L Monocytes % (Manual) 1 L Abs Neuts (Manual) 6.8 Lymphocytes # (Manual) 1.4 Monocytes # (Manual) 0.1 Toxic Vacuolation PRESENT Platelet Estimate NORMAL Plt Morphology Comment NORMAL RBC Morphology NORMAL Anion Gap 13 Estim Creat Clear Calc 64.1 Estimated GFR 43 Random Glucose 101 Lactic Acid Calcium 8.2 L Total Bilirubin Direct Bilirubin AST ALT Alkaline Phosphatase Total Protein Albumin Assessment and Plan (1) Acute hypoxemic respiratory failure: Status: Acute (2) Multifocal pneumonia: Status: Acute (3) Active substance abuse: Status: Acute Plan 38 year old male with history of polysubstance abuse admitted for multifocal pneumonia with acute hypoxemic respiratory failure. #Multifocal pneumonia with acute hypoxemic respiratory failure with sepsis- symptomatically improved -febrile to 102.5, tachycardic, tachypneic. No lactic acidosis or end-organ damage. No severe sepsis or shock -chest CT shows dense consolidation of the right middle and right lower lobes with patchy infiltrate of the right upper lobe and possible infiltrate of the left upper lobe versus pulmonary nodule -IV Zosyn (initiated 12/30) changed to ceftriaxone and doxy (12/31), pt afebrile x 24 hours -continue supplemental O2 to maintain oximetry greater than 92% -MRSA swab negative. DC vanco. -sputum culture, strep pneumo antigen, Legionella antigen pending -symptomatic management -follow CBC, cultures #Influenza A -tamiflu (initiated 12/30) -symptomatic management # polysubstance abuse -urine tox screen positive for fentanyl, opiates, cocaine -denies IV drug abuse but check HIV, hepatitis panel -per addiction Medicine team,stop methadone. Pt does not desire MAT -hydroxyzine prn. BP soft, hold on clonidine for w/d -addiction med consult -monitor on cows #Depression/hallucinations/SI -on section 12a per careteam -sitter consult # cigarette smoker -cessation advised -declines NRT #ROBERT opacity -?infiltrate vs nodule -recommended 3month outpt follow up ct DVT prophaylxis- lovenox full code pt requires inpt stay at least 2 midnights for management of multifocal pneunonia with acute hypoxemic respiratory failure in pt with history drug abuse requiring board spectrum abx awaiting cultures and supplemental O2, and will require placement for dual dx Quality Stroke Does the patient have a stroke diagnosis?: No VTE Prior VTE?: No VTE Risk Level:: Medical - moderate - high VTE Device Contraindication: Treatment Not Indicated VTE Drug Contraindication: N/A - Med Ordered
[2023-12-31 08:00] VITALS: BP 109/62; PULSE 79; RESP 18; TEMP 36.2; O2SAT 96
--- NOTE | 2023-12-31 09:02 | HE.PHANOTE ---
RE: radhao Patient's creatinine doubled, changed dosing to Q24H with a random to be drawn today at 1600. 1250mg Q24H yields predicted AUC of 438 mg/L, trough of 12.5
[2023-12-31 09:09] LABS: MRSA Nasal PCR NEGATIVE (Negative); SA Nasal PCR NEGATIVE (Negative)
--- NOTE | 2023-12-31 11:14 | MHC.RECOVRN ---
Met with pt to follow up and provide support. Pt laying in bed, eyes closed, wakes to voice, appears to be feeling better than yesterday. More engageable, less diaphoretic, appears comfortable. Pt reports feeling body aches and weakness. Pt declines all MOUD, not interested in MOUD for withdrawal symptoms nor to continue after discharge. Discussed comfort medications, pt agreeable. Pt denies questions or concerns for t/w. Discussed with provider.
--- NOTE | 2023-12-31 11:59 | PC.NURSE ---
Patient has requested his cellphone for contact numbers which is with his belongings in ED behavioral health pod. Pt told he cannot keep phone with him but can look up phone numbers while being supervised, pt agreeable. Belongings then moved from ED behavioral health pod to [address] (bottom shelf on left side)
[2023-12-31] MEDS: Enoxaparin Sodium 40 MG/0.4 ML SYRINGE SUBCUT (14:14)
[2023-12-31] MEDS: methADONE HCl 20 MG/2 ML ORAL.CONC PO (14:15)
[2023-12-31] MEDS: guaiFENesin 200 MG/10 ML 10 ML LIQUID PO (14:59)
[2023-12-31 15:16] VITALS: BP 118/68; PULSE 87; RESP 18; TEMP 37.4; O2SAT 94
--- NOTE | 2023-12-31 16:22 | MHC.CM.PN ---
CM ATTEMPTED TO MEET WITH PT WHO WAS SLEEPING PT TO REVISIT
[2023-12-31 16:43] LABS: Vancomycin Random 16.8 mcg/mL (15-20)
[2023-12-31] MEDS: cefTRIAXone sodium 1 GM in 0.9 % Sodium Chloride 50 ML IV (17:22)
[2023-12-31 19:00] VITALS: BP 130/64; PULSE 88; RESP 18; TEMP 36.8; O2SAT 93
[2023-12-31] MEDS: Doxycycline Hyclate 100 MG in 0.9 % Sodium Chloride 250 ML 166.67 MG IV (20:46)
[2023-12-31] MEDS: Melatonin 3 MG TABLET 6 MG PO (20:47)
[2024-01-01] MEDS: guaiFENesin 200 MG/10 ML 10 ML LIQUID PO ×4 (01:13→15:07)
[2024-01-01 03:37] VITALS: BP 110/62; PULSE 74; RESP 18; TEMP 36.2; O2SAT 94
[2024-01-01] MEDS: Oseltamivir Phosphate 75 MG CAPSULE PO ×2 (04:06→14:43)
[2024-01-01 06:18] LABS: Anion Gap 10 (12-20); Blood Urea Nitrogen 22 mg/dL (9-16); Calcium 8.7 mg/dL (8.4-10.2); Carbon Dioxide 27 mmol/L (22-29); Chloride 101 mmol/L (96-108); Creatinine Clr Calc Pharmacy 75.6; Estimated Glomerular Filt Rate 52; Glucose Random 92 mg/dL (60-115); Potassium 3.4 mmol/L (3.3-5.1); Sodium 135 mmol/L (135-145)
[2024-01-01 07:03] VITALS: BP 107/65; PULSE 80; RESP 14; TEMP 36.2; O2SAT 100
--- NOTE | 2024-01-01 07:19 | P.PNIM_ITS ---
Subjective Subjective Date of Service: 01/01/24 Interval History: Seen in follow-up for influenza, multifocal pneumonia, acute hypoxemic respiratory failure Interval history: Reports sob, wheezing, productive cough. Afebrile. Wants to leave, denies SI. On section 12a Review of Systems Review of Systems: Yes all other systems are reviewed and are negative Physical Exam 2 Vital Signs: Vital Signs: Last Vital Signs Temp 97.1 F 01/01/24 07:03 Pulse 80 01/01/24 07:03 Resp 14 01/01/24 07:03 BP 107/65 01/01/24 07:03 Pulse Ox 100 01/01/24 07:03 O2 Del Method Room Air 01/01/24 07:03 O2 Flow Rate 2 12/31/23 08:00 BMI result Body Mass Index 37.9 Constitutional - Awake and Alert, No apparent distress Eyes - PERRLA, EOMI Cardiovascular - S1S2, RRR, No edema Respiratory - Normal lung expansion, Normal respiratory effort, No respiratory distress, bilateral rhonchi/expiratory wheezing Gastrointestinal - NT / ND; +BS; No rebound or guarding Extremities - no calf tenderness bilaterally, no swelling Skin - Warm/Dry Neurological - Alert & oriented x3 Psychological - Appropriate affect Objective Data Active Medications Acetaminophen (Acetaminophen 325 Mg Tablet) 650 mg PO Q6H PRN PRN Reason: Pain, Mild (Pain Scale 1-3) Last Admin: 12/31/23 20:47 Dose: 650 mg Documented By: NADINE Enoxaparin Sodium (Enoxaparin Sodium 40 Mg/0.4 Ml Syringe) 40 mg SUBCUT Q24H [facility] Last Admin: 12/31/23 14:14 Dose: 40 mg Documented By: JORGE Guaifenesin (Guaifenesin 200 Mg/10 Ml 10 Ml Liquid) 10 ml PO Q4H PRN PRN Reason: Cough Last Admin: 01/01/24 06:04 Dose: 10 ml Documented By: NADINE Hydroxyzine HCl (Hydroxyzine Hcl 25 Mg Tablet) 25 mg PO Q6H PRN PRN Reason: withdrawal Vancomycin HCl 1,250 mg/ (Sodium Chloride) 250 mls @ 166.667 mls/hr IV Q24H [facility] Last Infusion: 12/31/23 19:01 Dose: Infused Documented By: NADINE Ceftriaxone Sodium 1 gm/ (Sodium Chloride) 50 mls @ 100 mls/hr IV Q24H [facility] Last Infusion: 12/31/23 18:02 Dose: Infused Documented By: JORGE Doxycycline Hyclate 100 mg/ (Sodium Chloride) 250 mls @ 166.67 mls/hr IV Q12H [facility] Last Infusion: 12/31/23 22:22 Dose: Infused Documented By: NADINE Melatonin (Melatonin 3 Mg Tablet) 6 mg PO BEDTIME PRN PRN Reason: Insomnia Last Admin: 12/31/23 20:47 Dose: 6 mg Documented By: NADINE Ondansetron HCl (Ondansetron Hcl 4 Mg/2 Ml Vial) 4 mg IVPUSH Q8H PRN PRN Reason: Nausea and Vomiting Last Admin: 12/30/23 23:23 Dose: 4 mg Documented By: ODRISBarry Oseltamivir Phosphate (Oseltamivir Phosphate 75 Mg Capsule) 75 mg PO Q12H [facility] Stop: 01/04/24 04:01 Last Admin: 01/01/24 04:06 Dose: 75 mg Documented By: NADINE Pharmacy Consult (Consult Rx Vancomycin Dosing) 1 each MISCELLANE DAILY PRN PRN Reason: Consult order Senna (Sennosides 8.6 Mg Tablet) 17.2 mg PO BEDTIME PRN PRN Reason: Constipation Sodium Chloride (0.9 % Sodium Chloride Flush 3 Ml Syringe) 3 ml IVFLUSH QSHIFT [facility] Last Admin: 12/31/23 20:48 Dose: 3 ml Documented By: NADINE Tizanidine HCl (Tizanidine Hcl 4 Mg Tablet) 4 mg PO TID PRN PRN Reason: muscle spasm Labs 12/31/23 06:04 01/01/24 05:12 Labs: Laboratory Results - last 24 hr 12/30/23 12/31/23 12/31/23 16:10 06:04 16:01 Neutrophils % (Manual) 71 Band Neutrophils % 11 H Lymphocytes % (Manual) 17 L Monocytes % (Manual) 1 L Abs Neuts (Manual) 6.8 Lymphocytes # (Manual) 1.4 Monocytes # (Manual) 0.1 Toxic Vacuolation PRESENT Platelet Estimate NORMAL Plt Morphology Comment NORMAL RBC Morphology NORMAL Anion Gap Estim Creat Clear Calc Estimated GFR Random Glucose Calcium Nasal Screen MRSA (PCR) NEGATIVE Nasal S. aureus Screen NEGATIVE Nasal MRSA/S.aureus Interp SEE NOTE Random Vancomycin 16.8 01/01/24 05:12 Neutrophils % (Manual) Band Neutrophils % Lymphocytes % (Manual) Monocytes % (Manual) Abs Neuts (Manual) Lymphocytes # (Manual) Monocytes # (Manual) Toxic Vacuolation Platelet Estimate Plt Morphology Comment RBC Morphology Anion Gap 10 L Estim Creat Clear Calc 75.6 Estimated GFR 52 Random Glucose 92 Calcium 8.7 D Nasal Screen MRSA (PCR) Nasal S. aureus Screen Nasal MRSA/S.aureus Interp Random Vancomycin Microbiology Microbiology Results: Microbiology 12/30/23 11:57 Blood Culture - Preliminary Blood - Venous No growth after 24 hours. 12/30/23 11:44 Blood Culture - Preliminary Blood - Venous No growth after 24 hours. Assessment and Plan (1) Acute hypoxemic respiratory failure: Status: Acute (2) Multifocal pneumonia: Status: Acute (3) Active substance abuse: Status: Acute Plan 38 year old male with history of polysubstance abuse admitted for multifocal pneumonia with acute hypoxemic respiratory failure. #Multifocal pneumonia with acute hypoxemic respiratory failure with sepsis -febrile to 102.5, tachycardic, tachypneic. No lactic acidosis or end-organ damage. No severe sepsis or shock. SEPSIS RESOLVED -chest CT shows dense consolidation of the right middle and right lower lobes with patchy infiltrate of the right upper lobe and possible infiltrate of the left upper lobe versus pulmonary nodule -MRSA swab negative, vanco dc'd 01/01 -IV Zosyn (initiated 12/30) changed to ceftriaxone and doxy (12/31). 01/01- Changed to PO cefuroxime 500mg bid and PO doxy 100mg BID x5 days -Weaned from O2 -sputum culture, strep pneumo antigen, Legionella antigen pending -symptomatic management -cultures negative thus far #Wheezing -likely bronchitis -Given methylprednisolone 40 mg IV x1. Prednisone 40 mg daily x5 days -DuoNebs q.4h, albuterol prn #Influenza A -tamiflu (initiated 12/30) -symptomatic management # polysubstance abuse -urine tox screen positive for fentanyl, opiates, cocaine -denies IV drug abuse but check HIV, hepatitis panel -per addiction Medicine team,stop methadone. Pt does not desire MAT -hydroxyzine prn. BP soft, hold on clonidine for w/d -addiction med consult -monitor on cows #Depression/hallucinations/SI -on section 12a per victeam -sitter consult -medically cleared, care team re-evaluation pending # cigarette smoker -cessation advised -declines NRT #ROBERT opacity -?infiltrate vs nodule -recommended 3month outpt follow up ct DVT prophaylxis- lovenox full code pt requires ongoing inpt stay: on section 12, dispo pending care team re- evaluation Quality Stroke Does the patient have a stroke diagnosis?: No VTE Prior VTE?: No VTE Risk Level:: Medical - moderate - high VTE Device Contraindication: Treatment Not Indicated VTE Drug Contraindication: N/A - Med Ordered
[2024-01-01] MEDS: 0.9 % Sodium Chloride Flush 3 ML SYRINGE IVFLUSH ×2 (07:59→14:43)
[2024-01-01] MEDS: Doxycycline Hyclate 100 MG in 0.9 % Sodium Chloride 250 ML 166.67 MG IV (08:02)
--- NOTE | 2024-01-01 09:31 | PC.NURSE ---
Okay to give information to patient sig other. Shelli.
[2024-01-01] MEDS: methylPREDNISolone Sod Succ 40 MG/ML VIAL IVPUSH (09:32)
[2024-01-01] MEDS: Albuterol/Iprat 2.5/0.5MG 3 ML AMPUL.NEB INHALE (11:01)
[2024-01-01 11:02] VITALS: PULSE 76; RESP 18; O2SAT 99
[2024-01-01] MEDS: methADONE HCl 20 MG/2 ML ORAL.CONC 15 MG PO (12:04)
--- NOTE | 2024-01-01 13:56 | MHC.RECOVRN ---
Met with pt to follow up on withdrawal symptoms. Pt laying in bed, awake, alert, engages in conversation, appears comfortable. Pt did receive 20 mg methadone yesterday afternoon, reports positive effect. Pt reiterates desire to not remain on MOUD. Discussed taper, pt agreeable. Pt denies other questions or concerns for t/w. Discussed with Shima Steen APRN.
[2024-01-01] MEDS: Enoxaparin Sodium 40 MG/0.4 ML SYRINGE SUBCUT (14:42)
--- NOTE | 2024-01-01 14:56 | MHC.CM.PN ---
pt lives with s/o started on merthadone here referral fs for [facility]
[2024-01-01] MEDS: hydrOXYzine HCL 25 MG TABLET PO (15:07)
[2024-01-01] MEDS: TiZANidine HCL 4 MG TABLET PO (15:07)
[2024-01-01 15:37] VITALS: BP 149/78; PULSE 88; RESP 18; TEMP 37; O2SAT 96
--- NOTE | 2024-01-01 15:42 | PC.NURSE ---
patient states he wants to leave [facility] notified and because he is a section 12 he needs to meet with care team to be cleared before discharge. patient was re-evaluated and is now medically cleared so we are awaiting care team to assess for final plan
[2024-01-01] MEDS: cefuroxime axetiL 500 MG TABLET PO (16:39)
--- NOTE | 2024-01-01 17:12 | P.DS_ITS ---
DS: Providers Provider Date of Service: 01/01/24 Date of admission: 12/30/23 14:34 Date of discharge: 01/01/24 Primary care physician: None Physician Admitting clinician: Abi Marshall Attending physician on admission: Sondra Becerra Consults: 12/29/23 04:02 Consult to Care Team Stat Comment: Reason for consultation: suicidal/polysubstance use 12/30/23 14:37 Addiction Medicine Routine Consulting Provider: Addiction Covering Reason for consultation: polysubstance abuse 12/30/23 14:56 Consult for Sitter Routine Reason for consultation: si 01/01/24 15:44 Consult to Care Team Routine Comment: Reason for consultation: medically cleared, on section 12a for dual dx Attending physician on discharge: [facility] Discharging clinician: Abi Marshall DS: Diagnosis Discharge Diagnosis (1) Acute hypoxemic respiratory failure: Status: Inactive (2) Multifocal pneumonia: Status: Inactive (3) Active substance abuse: Status: Acute DS: Summary Hospital Course Hospital Course: HPI on admission by this provider 12/30: 38 year old male with history of polysubstance abuse presented to the ED earlier yesterday morning due to hallucination, paranoia, depression, and vague chest pains. He had reportedly been in the area to do drugs. Reports smoking crack cocaine prior to arrival. Denies any other substance use including any history of IVDA. No etoh use. Does smoke 1ppd cigarettes. He had been under observation in the ED awaiting placement for dual diganosis after evaluation by care team. He states he has had productive cough with pleuritic chest pain ongoing x several days. No sob, lightheadedness, palpitations, congestion, sore throat, abd pain, n/v/d. He is reporting sweats and chills. Reports having been on suboxone but there are no records of this. Evaluated by addiction team yesterday and was started on 20mg methadone. He is still reporting feeling out of it but is denying any active hallucinations, active SI, HI and is oriented x4. Had made reports of SI to care team and is on section 12. Vitals signficant for fevers up to 102.5, tachycardia to 120, tachypnea and hypoxia to 86%, now on 2L maintaining oximetry 94%. No leukocytosis. Renal function and lytes normal. Lactic acid normal. AST 46/ALT 55. Utox positive for fentanyl, opiates, and cocaine. Chest CT shows dense consolidation RML and RLL with patchy infiltrates of the RUL. THere is also a nodular opacity ROBERT 1ch, possibly infiltrate vs nodule. In the ED, has received flexeril, tylenol, ibuprofen, ceftriaxone, hydroxyzine, methadone, and 1L IVF. Hospital course: Pt admitted to /s for further management of influenza A with multifocal pneumonia with acute hypoxemic respiratory failure and sepsis. He was started on broad spectrum antibiotics zosyn and vanco given hx drug abuse with multifocal pneumonia. MRSA screen negative and vanco was discontinued. Pt remained afebrile so was transitioned to ceftriaxone and doxycycline. He was weaned from supplemental O2. On the morning of discharge patient was reporting chest tightness and was started on steroids with scheduled duonebs with great improvement in symptoms. During admission was evaluated by addiction team and was started on methadone, however patient declined further treatment. He wanted to leave the hospital but had been admitted on section 12. Given great improvement in respiratory symptoms including hypoxia, he was medically cleared and care team consult was placed for disposition recommendation. He denied any ongoing SI and was cleared for discharge home by care team with outpt follow up advised. He will be discharged on 875mg augmentin BID x 5 days as well as prednisone 40mg daily x 5 days, albuterol prn, and hydroxyzine 25-50mg prn for withdrawal symptoms. Pt expresses desire to remain sober and has good social supports and has information on various support groups which he can attend. He is advised to follow up with CCC and PCP soon. Recommend 3m follow up with CT to ensure resolution of ROBERT opacity. #Multifocal pneumonia with acute hypoxemic respiratory failure with sepsis -febrile to 102.5, tachycardic, tachypneic. No lactic acidosis or end-organ damage. No severe sepsis or shock. SEPSIS RESOLVED -chest CT shows dense consolidation of the right middle and right lower lobes with patchy infiltrate of the right upper lobe and possible infiltrate of the left upper lobe versus pulmonary nodule -MRSA swab negative. Strep pneumo ag, legionella ag pending -Augementin 875mg BID x7 days -blood cultures negative #Wheezing -likely bronchitis -Complete Prednisone 40 mg daily x5 days -albuterol prn #Influenza A -Complete course of tamiflu -symptomatic management # polysubstance abuse -urine tox screen positive for fentanyl, opiates, cocaine -HIV, hepatitis panel negative (except hep b surface ab) -Started on methadone 30mg -->20mg, but declined further MAT -Discharged with hydroxyzine to use prn for w/d symptoms -Outpt follow up #Depression/hallucinations/SI -Evaluated by Care team, no inpt psych recommended -outpt followup # cigarette smoker -cessation advised -declined NRT #ROBERT opacity -likely infiltrate given clinical picture, but cannot exclude pulmonary nodule -recommended 3month outpt follow up ct Time spent discussing smoking cessation with patient: 3 to 10 minutes Status at Discharge Functional status at discharge: independent ambulation Overall status at discharge: patient is progressing back to baseline Time Attestation Discharge coordination time: Greater than 30 minutes Quality: Safe Use of Opioids Does Pt have an Active Cancer Diagnosis on the Problem List?: No Quality: Stroke Does the patient have a stroke diagnosis?: No Physical Exam Vital Signs: Vital Signs: Last Vital Signs Temp 98.6 F 01/01/24 15:37 Pulse 88 01/01/24 15:37 Resp 18 01/01/24 15:37 BP 149/78 H 01/01/24 15:37 Pulse Ox 96 01/01/24 15:37 O2 Del Method Room Air 01/01/24 15:37 O2 Flow Rate 2 12/31/23 08:00 BMI result Body Mass Index 37.9 DS: Data Data Completed and Pending Labs on day of discharge: Laboratory Results - last 24 hr 01/01/24 05:12 Sodium 135 Potassium 3.4 Chloride 101 Carbon Dioxide 27 Anion Gap 10 L BUN 22 H Creatinine 1.50 H Estim Creat Clear Calc 75.6 Estimated GFR 52 Random Glucose 92 Calcium 8.7 D Preliminary micro results at discharge 12/30/23 11:57 Blood Culture - Preliminary Blood - Venous No growth after 48 hours. 12/30/23 11:44 Blood Culture - Preliminary Blood - Venous No growth after 48 hours. 12/31/23 17:11 Sputum Culture - Preliminary Sputum - Expectorated Culture in progress. Discharge Plan Discharge Anticipated Discharge Date/Time: 01/01/24 16:45 Patient Disposition: Home, Self-Care Discharge Diagnosis: pneumonia, hypoxia, bronchitis, substance use Referrals: Physician,None [Primary Care Provider] - 1 Week Shima Steen CNP [Nurse Practitioner] - 1 Week Discharge Medications: No Action No Known Home Meds Discharge Orders: Discharge Order (Routine); Ordered 01/01/24 Ordered By: Abi Marshall Diet: Advance to usual diet Activity on Discharge: As tolerated Stand Alone Forms: Patient Portal Discharge page Print Language: Occitan Care Plan Goals: Treat pneumonia Maintain sobriety Health Concerns: Substance abuse Pneumonia with hypoxia Bronchitis Plan of Treatment: Substance use -utilize supports with friends, family, support groups -avoid triggers -use 25-50mg hydroxyzine as needed for withdrawal -follow up with the comprehensive care team in 1 week should you want MAT Pneumonia/bronchitis -Take augmentin (amox-clav) 875mg twice daily WITH FOOD x7 days. Eat yogurt with med to help prevent diarrhea/GI upset -Prednisone 40mg (2 tabs every morning) x5 days. Take with food. May cause aggitation, excess energy, hunger -use albuterol as needed Follow up with pcp Assessment: See discharge summary Discharge Date/Time: 01/01/24 17:40
[2024-01-02 03:46] LABS: HBS Num1 167.73 mIU/mL (0-7.99); HBc Num1 0.11 S/CO (0.00-0.79); HBsAGNum1 0.62 S/CO (0.00-0.99); HIV AB/AG Nonreactive (Nonreactive); HIV Num 1 0.07 S/CO (0.00-0.99); Hepatitis B Core Antibody Nonreactive (Nonreactive); Hepatitis B Surface Antigen Negative (Negative); ~HepC Num1 0.14 S/CO (0.00-0.79); ~Hepatitis B Surface Antibody REACTIVE (Nonreactive); ~Hepatitis C Antibody Nonreactive (Nonreactive)
[2024-01-03 20:28] LABS: Strep Pneumo Ag urine Not Detected (Not Detected)
[2024-01-04 05:58] LABS: Legionella Ag Urine Not Detected (Not Detected)
== END 2024-01-01 17:40 | disposition home or self-care (01) | DRG 871 ==
LOC: HO.ED 12-30 10:20 → HO.EDOVER 12-30 14:43 → HO.S3 12-30 17:37
PROVIDERS: Internal Medicine; Admitting Provider Physician Assistant; Emergency Provider Emergency Medicine; Visit Provider Physician Assistant
DX: A41.9 Sepsis, unspecified organism (principal); J10.00 Influenza due to other identified influenza virus with unspecified type of pneumonia; R45.851 Suicidal ideations; F17.210 Nicotine dependence, cigarettes, uncomplicated; Z71.6 Tobacco abuse counseling; F19.10 Other psychoactive substance abuse, uncomplicated; F32.A Depression, unspecified; R91.1 Solitary pulmonary nodule; Z20.822 Contact with and (suspected) exposure to COVID-19
CPT/HCPCS: 36415; 71045; 71250; 80048; 80053; 80076; 80202; 80307; 81001; 83605; 84484; 85007; 85025; 85027; 86704; 86706; 86803; 87040; 87070; 87205; 87340; 87389; 87449; 87502; 87635; 87640; 87641; 87899; 93005; 94640; 99285; J0696; J1650; J2405; J2543; J2920; J3370; J3371; S9485

== ENCOUNTER → 2023-12-29 04:04 | Outpatient (BNV) | payer SELFPAY | PROVIDERS: Emergency Provider Emergency Medicine; Visit Provider Internal Medicine Cardiovascular Disease | DX: R07.9 Chest pain, unspecified (principal) | CPT/HCPCS: 93010 ==

== ENCOUNTER → 2023-12-30 14:34 | Outpatient (BNV) | payer SELFPAY | PROVIDERS: Admitting Provider Physician Assistant; Emergency Provider Emergency Medicine; Visit Provider Physician Assistant | DX: J96.01 Acute respiratory failure with hypoxia (principal); J18.9 Pneumonia, unspecified organism; F19.10 Other psychoactive substance abuse, uncomplicated | CPT/HCPCS: 99223; 99233; 99238 ==

== ENCOUNTER 2024-01-08 16:52 | Emergency (ER) | payer MEDICAID, SELFPAY ==
--- NOTE | 2024-01-08 17:21 | ED.GENADULT ---
HPI - General Adult General Chief complaint: Psychiatric Symptoms Stated complaint: crisis dillan curtis slepted in 5 days Time Seen by Provider: 01/08/24 17:33 Source: patient Mode of arrival: ambulatory Limitations: no limitations History of Present Illness HPI narrative: Patient is a 38 year old assigned male at with a history of substance abuse presenting to the emergency department today with suicidal ideation and insomnia. Patient states that he has been struggling to sleep lately and is feeling suicidal secondary to that. Patient denies any dizziness, lightheadedness, abdominal pain, nausea, vomiting, fever, chills, blurry vision, double vision, loss of vision, chest pain, difficulty breathing, shortness of breath, back pain, night sweats, pain with urination, increased urinary frequency, increased urinary urgency, blood in his urine or stool, syncope or a near syncopal episode, recent trauma or falls, bowel incontinence, bladder incontinence, bowel retention, bladder retention, or any other complaints at this time. Relieving factors: none Exacerbating factors: none Associated symptoms: denies other symptoms Treatments prior to arrival: none Related Data Previous Rx's Medication Instructions Recorded albuterol sulfate 90 mcg/actuation 2 puff inhalation Q6H PRN 01/01/24 aerosol inhaler shortness of breath or wheezing #8.5 grams amoxicillin 875 mg-potassium 1 tab PO Q12H #14 tabs 01/01/24 clavulanate 125 mg tablet hydroxyzine HCl 25 mg tablet 25 - 50 mg (1 - 2 x 25 mg) PO QID 01/01/24 PRN withdrawal symptoms #30 tabs prednisone 20 mg tablet 40 mg (2 x 20 mg) PO DAILY #10 tabs 01/01/24 Allergies Allergy/AdvReac Type Severity Reaction Status Date / Time No Known Allergies Allergy Verified 12/29/23 03:55 Review of Systems Constitutional: Constitutional: Reports no additional constitutional complaints, Denies chills, Denies fever(s) and Denies night sweats Eyes: Eyes: Reports no additional eye complaints, Denies blurry vision, Denies change in vision, Denies diplopia, Denies eye discharge, Denies loss of vision and Denies eye pain ENT: Denies dizziness Cardiovascular: Cardiovascular: Reports no additional cardiovascular complaints, Denies chest pain, Denies lightheadedness, Denies Loss of Consciousness and Denies dyspnea Respiratory: Respiratory: Reports no additional respiratory complaints and Denies dyspnea Gastrointestinal: Gastrointestinal: Reports no additional gastrointestinal complaints, Denies abdominal pain, Denies melena, Denies hematochezia, Denies change in bowel habits and Denies change in stool character Genitourinary: Genitourinary: Reports no additional male genitourinary complaints, Denies hematuria, Denies oliguria, Denies difficulty urinating, Denies dysuria, Denies urinary frequency, Denies urinary hesitancy, Denies urinary incontinence and Denies urinary urgency Musculoskeletal: Musculoskeletal: Reports no additional musculoskeletal complaints, Denies numbness and Denies tingling Neurologic: Denies dizziness, Denies loss of vision, Denies numbness and Denies tingling Psychiatric: Psychiatric: Reports suicidal ideation Endocrine: Endocrine: Reports no additional endocrine complaints Hematologic/Lymphatic: Hematologic/Lymphatic: Reports no additional hematologic/lymphatic complaints Allergic/Immunologic: Allergic/Immunologic: Reports no additional allergic/immunologic complaints PMFSH Past Medical History Attestation statement: The following information was validated with the patient. Source: old records reviewed and nursing notes reviewed Medical History Acute hypoxemic respiratory failure Multifocal pneumonia Active substance abuse Social History Social History Household Members: Spouse and Children Housing: House Do you presently have visiting nurse or other home services: No Comment: sitter Patient Tobacco Use Status: Current everyday Tobacco user Tobacco use type: Cigarette Cigarettes Per Day: 20 Years Smoked: 20 Smoked in Last 30 Days: No Second Hand Smoke Exposure: No Use of substances other than those prescribed or required for medical reasons: Yes Substance Use Type: Marijuana Substance Use Frequency: Occasionally Last Used Substance: Hours (ago) Any prior treatment program specific to substance use: No service: No Physical Exam ED Vital Signs: Vital Signs - 24 hr 01/08/24 17:22 Temperature 98 F Pulse Rate 92 Respiratory Rate 16 Blood Pressure 143/85 H Pulse Oximetry 99 Oxygen Delivery Method Room Air BMI result Body Mass Index 37.1 Const General: cooperative, no acute distress, alert and awake Nutritional Appearance: well nourished Orientation/consciousness: patient oriented x3 Limitations: no limitations HENMT Head: Yes normal to inspection and Yes atraumatic Ears: hearing grossly normal bilaterally and external ears normal General nose exam: Normal external nose present, no nasal discharge noted and no epistaxis Face and sinus: Yes normal facial exam, No abrasion and No laceration Mouth: Normal oral and palatal mucosa present, no drooling and no muffled voice Eyes General: appearance normal, both eyes and all related structures Periorbital: periorbital findings normal Eyelids: Yes eyelids normal Conjunctivae: conjunctivae normal Pupils: Equal, round and reactive pupils present EOM: EOMs intact bilaterally Neck Neck: Yes normal visual inspection, Yes full ROM and Yes no lymphadenopathy Chest Chest palpation & inspection: normal inspection of the chest Resp Effort & Inspection: normal respiratory effort and able to speak in complete sentences GI Inspection: Yes normal to inspection Neuro General: patient oriented x3 and moves all extremities Cranial nerves: Yes Equal, round and reactive pupils present Cognition (Neuro): normal cognition Motor exam (neuro): 5/5 motor strength present throughout Sensory Exam: Normal double simultaneous stimulation for sensation Coordination: [id number] test normal Extrem General: Yes normal to inspection, Yes full ROM and Yes capillary refill normal Psych Appearance: grossly normal Mental Status: mental status grossly normal Affect: normal affect Attitude: cooperative Thought process: Normal thought process present Thought content: Normal thought content present Insight: Good insight present (Psych) Course Course Course Narrative: RME:?38 yo male here for eval of agitation, insomnia, restlessness and suicidal ideation without plan x5 days. began methadone 5 days ago. has tried tramadol to help him sleep. He was on saboxone which he stopped taking when he was admitted here on 12/29. Denies HI. last consumed etoh yesterday (1 shot and 1 beer). denies ilicit substance use. no physical complaints. i just want to sleep . labs, UA, UDS, care team eval ordered Full HPI, ROS and PE to be performed by the primary ED provider. Medical Decision Making Medical Decision Making MDM Narrative: Patient is a 38 year old assigned male at with a history of substance abuse and recent pneumonia requiring hospitalization presenting to the emergency department today with insomnia and suicidal ideation. Patient's physical exam was unremarkable. Patient's blood work showed a mild WBC count elevation - this is likely secondary to stress response given patient's insomnia and recent ABX use. The rest of the patient's labs were largely unremarkable. I explained my physical exam findings as well as all test results to the patient. I answered all questions asked by the patient. Patient's disposition will be determined after CARE team evaluation. Differential Diagnosis Differential Diagnoses: The differential diagnosis associated with the presentation includes Insomnia Suicidal ideation Substance abuse Admission/Observation Consideration of admission/observation: Escalation of care including admission/observation considered Disposition will be determined after CARE team evaluation. Lab Data [facility] Lab Attestation statement: I reviewed the patient's lab results. My interpretation of these results are in the [facility] Rationale portion of this note. 01/08/24 17:59 01/08/24 17:59 Labs: Lab Results 01/08/24 01/08/24 Range/Units 17:47 17:59 WBC 14.0 H (4.8-10.8) X10*3/uL RBC 4.41 L (4.60-5.80) X10*6/uL Hgb 12.3 L (14.0-18.0) g/dl Hct 37.0 L (42.0-52.0) % MCV 83.9 (80.0-98.0) fL MCH 27.9 (27.0-33.0) pg MCHC 33.2 (31.0-36.0) g/dl RDW 13.0 (11.0-16.0) % Plt Count 429 H D (160-400) X10*3/uL MPV 8.7 L (9.4-12.4) fL Immature Gran % (Auto) 1.0 H (0.0-0.4) % Neut % (Auto) 69.0 (45-73) % Lymph % (Auto) 23.2 (20-40) % [place] % (Auto) 5.8 (2-11) % Eos % (Auto) 0.8 (0-4) % Baso % (Auto) 0.2 (0-2) % Lymph # (Auto) 3.2 (1.2-4.9) X10*3/uL [place] # (Auto) 0.8 (0.1-1.2) X10*3/uL Eos # (Auto) 0.1 (0.0-0.4) X10*3/uL Baso # (Auto) 0.0 (0.0-0.2) X10*3/uL Abs Immat Gran (auto) 0.14 H (0.00-0.03) X10*3/uL Absolute Neuts (auto) 9.6 H (2.0-8.3) x10*3/uL Absolute Nucleated RBC 0.000 (0.0-0.012) X10*3/uL Nucleated RBC % (auto) 0.0 (0.0-0.2) /100WBC Sodium 139 (135-145) mmol/L Potassium 4.1 D (3.3-5.1) mmol/L Chloride 109 H (96-108) mmol/L Carbon Dioxide 22 (22-29) mmol/L Anion Gap 12 (12-20) BUN 30 H (9-16) mg/dL Creatinine 1.16 (0.5-1.4) mg/dL Estim Creat Clear Calc 96.7 Estimated GFR > 60 Random Glucose 136 H (60-115) mg/dL Calcium 8.9 (8.4-10.2) mg/dL Magnesium 1.9 (1.6-2.6) mg/dL Total Bilirubin 0.2 (0.0-1.0) mg/dL AST 22 (5-37) U/L ALT 46 H (0-40) U/L Alkaline Phosphatase 94 (39-117) U/L Total Protein 7.5 (6.5-8.0) g/dL Albumin 3.7 (3.5-5.0) g/dL Lipase 95 H (8-78) U/L Urine Color Yellow Urine Appearance Clear Urine pH 5.5 (5.0-9.0) Ur Specific [place] 1.015 (1.005-1.025) Urine Protein Negative (Neg-Trace) mg/dL Urine Glucose (UA) Negative (Negative) mg/dL Urine Ketones Negative (Negative) mg/dL Urine Blood Negative (Negative) Urine Nitrite Negative (Negative) Ur Leukocyte Esterase Negative (Negative) Salicylates < 5.0 L (15-30) mg/dL Urine Opiates Screen Not Detected (Not Detect) Urine Fentanyl Screen Not Detected (Not Detect) Ur Barbiturates Screen Not Detected (Not Detect) Ur Phencyclidine Scrn Not Detected (Not Detect) Ur Amphetamines Screen Not Detected (Not Detect) U Benzodiazepines Scrn Not Detected (Not Detect) Urine Cocaine Screen Not Detected (Not Detect) U Marijuana (THC) Screen POSITIVE H (Not Detect) Ethyl Alcohol < 10 mg/dL Discharge Plan Discharge Clinical Impression: Insomnia, Suicidal ideation Patient Disposition: Still a Patient Prescriptions: No Action prednisone 20 mg tablet 40 mg PO DAILY Qty: 10 0RF albuterol sulfate 90 mcg/actuation HFA aerosol inhaler 2 puff inhalation Q6H PRN (Reason: shortness of breath or wheezing) Qty: 8.5 0RF hydroxyzine HCl 25 mg tablet 25 - 50 mg PO QID PRN (Reason: withdrawal symptoms) Qty: 30 0RF amoxicillin-pot clavulanate 875-125 mg tablet 1 tab PO Q12H Qty: 14 0RF Interventions: [place]-Suicide Risk Severity Scale Last Done: 01/08/24 18:11
[2024-01-08 17:22] VITALS: BP 143/85; PULSE 92; RESP 16; TEMP 36.6; O2SAT 99; BMI 37.1
[2024-01-08 17:57] LABS: Appearance Urine Clear; Color Urine Yellow; Glucose Urine UA Negative (Negative); Leukocyte Esterase Urine Negative (Negative); Nitrite Urine Negative (Negative); PH 5.5 (5.0-9.0); Specific Gravity - Urine 1.015 (1.005-1.025); Urine Blood Negative (Negative); Urine Ketones Negative (Negative); Urine Protein Negative (Neg-Trace)
[2024-01-08 18:04] LABS: Amphetamine Screen Urine Not Detected (Not Detect); Barbiturates, Urine Not Detected (Not Detect); Benzodiazepines Screen Urine Not Detected (Not Detect); Cannabinoid Screen Urine POSITIVE (Not Detect); Cocaine Screen Urine Not Detected (Not Detect); Fentanyl, urine Not Detected (Not Detect); Opiate Screen Urine Not Detected (Not Detect); Phencyclidine Screen Urine Not Detected (Not Detect)
[2024-01-08 18:06] LABS: MANUAL DIFF FLAG NO
[2024-01-08 18:08] LABS: Basophils Percent Auto 0.2 % (0-2); Eosinophils Absolute Auto 0.1 X10*3/uL (0.0-0.4); Eosinophils Percent Auto 0.8 % (0-4); Hemoglobin 12.3 g/dl (14.0-18.0); Imm Gran Abs Auto 0.14 X10*3/uL (0.00-0.03); Lymphocytes Absolute Auto 3.2 X10*3/uL (1.2-4.9); Lymphocytes Percent Auto 23.2 % (20-40); Mean Corpuscular HGB Conc 33.2 g/dl (31.0-36.0); Mean Corpuscular Hemoglobin 27.9 pg (27.0-33.0); Mean Corpuscular Volume 83.9 fL (80.0-98.0); Mean Platelet Volume 8.7 fL (9.4-12.4); Monocytes Absolute Auto 0.8 X10*3/uL (0.1-1.2); Monocytes Percent Auto 5.8 % (2-11); Neutrophils Absolute Auto 9.6 x10*3/uL (2.0-8.3); Platelet Count 429 X10*3/uL (160-400); Red Blood Count 4.41 X10*6/uL (4.60-5.80)
[2024-01-08 18:26] LABS: Salicylate < 5.0 mg/dL (15-30)
[2024-01-08 18:27] LABS: Alanine Aminotransferase 46 U/L (0-40); Albumin Level 3.7 g/dL (3.5-5.0); Alkaline Phosphatase 94 U/L (39-117); Anion Gap 12 (12-20); Aspartate Amino Transferase 22 U/L (5-37); Bilirubin Total 0.2 mg/dL (0.0-1.0); Blood Urea Nitrogen 30 mg/dL (9-16); Calcium 8.9 mg/dL (8.4-10.2); Carbon Dioxide 22 mmol/L (22-29); Chloride 109 mmol/L (96-108); Creatinine Clr Calc Pharmacy 96.7; Estimated Glomerular Filt Rate > 60; Ethanol < 10 mg/dL; Glucose Random 136 mg/dL (60-115); Lipase 95 U/L (8-78); Magnesium 1.9 mg/dL (1.6-2.6); Potassium 4.1 mmol/L (3.3-5.1); Sodium 139 mmol/L (135-145); Total Protein 7.5 g/dL (6.5-8.0)
[2024-01-09] MEDS: LORazepam 1 MG TABLET 2 MG PO (01:00)
[2024-01-09 01:39] VITALS: O2SAT 99
--- NOTE | 2024-01-09 06:55 | PC.NURSE ---
Patient slept through the night, no distress observed/reported at this time, patient reported anxiety around midnight, provider notified/ordered Ativan 2 mg PO at 0100, administered as ordered with + effect, patient was seen by care team disposition is current provider, will continue to monitor.
== END 2024-01-09 09:25 | disposition home or self-care (01) ==
PROVIDERS: Physician Assistant Medical; Emergency Provider Emergency Medicine Emergency Medical Services; PCP Internal Medicine
DX: G47.00 Insomnia, unspecified (principal); R45.851 Suicidal ideations; F11.20 Opioid dependence, uncomplicated
CPT/HCPCS: 36415; 80053; 80179; 80307; 81003; 83690; 83735; 85025; 99285; S9485

== ENCOUNTER 2024-01-23 13:32 | Emergency (ER) | payer MEDICAID, SELFPAY ==
--- NOTE | 2024-01-23 14:03 | ED.GENADULT ---
HPI - General Adult General Chief complaint: Psychiatric Symptoms Stated complaint: Crisis Time Seen by Provider: 01/23/24 14:01 Source: patient Mode of arrival: ambulatory Limitations: no limitations History of Present Illness HPI narrative: Patient is a 38 year old assigned male at with a history of substance abuse presenting to the emergency department today with thoughts of hurting himself and heroin relapse. Patient states that he feels like he needs help to stop himself from hurting himself and needs help with his relapse on heroin. Patient denies any dizziness, lightheadedness, abdominal pain, nausea, vomiting, fever, chills, blurry vision, double vision, loss of vision, chest pain, difficulty breathing, shortness of breath, back pain, night sweats, pain with urination, increased urinary frequency, increased urinary urgency, blood in his urine or stool, syncope or a near syncopal episode, recent trauma or falls, bowel incontinence, bladder incontinence, bowel retention, bladder retention, or any other complaints at this time. Relieving factors: none Exacerbating factors: none Associated symptoms: denies other symptoms Treatments prior to arrival: none Related Data Home Medications Medication Instructions Recorded Confirmed No Known Home Meds 01/23/24 01/23/24 Allergies Allergy/AdvReac Type Severity Reaction Status Date / Time No Known Allergies Allergy Verified 12/29/23 03:55 Review of Systems Constitutional: Constitutional: Reports no additional constitutional complaints, Denies chills, Denies fever(s) and Denies night sweats Eyes: Eyes: Reports no additional eye complaints, Denies blurry vision, Denies change in vision, Denies diplopia, Denies eye discharge, Denies loss of vision and Denies eye pain ENT: Denies dizziness Cardiovascular: Cardiovascular: Reports no additional cardiovascular complaints, Denies chest pain, Denies lightheadedness, Denies Loss of Consciousness and Denies dyspnea Respiratory: Respiratory: Reports no additional respiratory complaints and Denies dyspnea Gastrointestinal: Gastrointestinal: Reports no additional gastrointestinal complaints, Denies abdominal pain, Denies melena, Denies hematochezia, Denies change in bowel habits and Denies change in stool character Genitourinary: Genitourinary: Reports no additional male genitourinary complaints, Denies hematuria, Denies oliguria, Denies difficulty urinating, Denies dysuria, Denies urinary frequency, Denies urinary hesitancy, Denies urinary incontinence and Denies urinary urgency Musculoskeletal: Musculoskeletal: Reports no additional musculoskeletal complaints, Denies numbness and Denies tingling Neurologic: Denies dizziness, Denies loss of vision, Denies numbness and Denies tingling Psychiatric: Psychiatric: Denies homicidal ideation and Reports suicidal ideation Endocrine: Endocrine: Reports no additional endocrine complaints Hematologic/Lymphatic: Hematologic/Lymphatic: Reports no additional hematologic/lymphatic complaints Allergic/Immunologic: Allergic/Immunologic: Reports no additional allergic/immunologic complaints [facility] Past Medical History Attestation statement: The following information was validated with the patient. Source: old records reviewed and nursing notes reviewed Medical History Acute hypoxemic respiratory failure Multifocal pneumonia Active substance abuse Social History Social History Household Members: Spouse and Children Housing: House Do you presently have visiting nurse or other home services: No Comment: sitter Patient Tobacco Use Status: Current everyday Tobacco user Tobacco use type: Cigarette Cigarettes Per Day: 20 Years Smoked: 20 Second Hand Smoke Exposure: No Substance Use Type: Marijuana Advance Directives: No Advance Directives Information Provided: Yes service: No Physical Exam ED Vital Signs: Vital Signs - 24 hr 01/23/24 14:04 Temperature 97.9 F Pulse Rate 108 H Respiratory Rate 18 Blood Pressure 167/102 H Pulse Oximetry 99 Oxygen Delivery Method Room Air BMI result Body Mass Index 36.0 Const General: cooperative, no acute distress, alert and awake Nutritional Appearance: well nourished Orientation/consciousness: patient oriented x3 Limitations: no limitations [facility] Head: Yes normal to inspection and Yes atraumatic Ears: hearing grossly normal bilaterally and external ears normal General nose exam: Normal external nose present, no nasal discharge noted and no epistaxis Face and sinus: Yes normal facial exam, No abrasion and No laceration Mouth: Normal oral and palatal mucosa present, no drooling and no muffled voice Eyes General: appearance normal, both eyes and all related structures Periorbital: periorbital findings normal Eyelids: Yes eyelids normal Conjunctivae: conjunctivae normal Pupils: Equal, round and reactive pupils present EOM: EOMs intact bilaterally Neck Neck: Yes normal visual inspection, Yes full ROM and Yes no lymphadenopathy Chest Chest palpation & inspection: normal inspection of the chest Resp Effort & Inspection: normal respiratory effort and able to speak in complete sentences GI Inspection: Yes normal to inspection Neuro General: patient oriented x3 and moves all extremities Cranial nerves: Yes Equal, round and reactive pupils present Cognition (Neuro): normal cognition Motor exam (neuro): 5/5 motor strength present throughout Sensory Exam: Normal double simultaneous stimulation for sensation Coordination: [id number] test normal Extrem General: Yes normal to inspection, Yes full ROM and Yes capillary refill normal Psych Appearance: grossly normal Mental Status: mental status grossly normal Affect: normal affect Attitude: cooperative Thought process: Normal thought process present Thought content: Normal thought content present Insight: Good insight present (Psych) Medical Decision Making Medical Decision Making [facility] Narrative: Patient is a 38 year old assigned male at with a history of drug use presenting to the emergency department today with self harm thoughts and recent relapse of drug use. Patient's physical exam was unremarkable. Patient's blood work was unremarkable. I explained my physical exam findings as well as all test results to the patient. I answered all questions asked by the patient. Patient's disposition will be determined after CARE team evaluation. Differential Diagnosis Differential Diagnoses: The differential diagnosis associated with the presentation includes Polysubstance use Substance use Suicidal ideation Self harm thoughts Admission/Observation Consideration of admission/observation: Escalation of care including admission/observation considered Patient's disposition will be determined after CARE evaluation. Lab Data [facility] Lab Attestation statement: I reviewed the patient's lab results. My interpretation of these results are in the [facility] Rationale portion of this note. 01/23/24 16:17 01/23/24 16:17 Labs: Lab Results 01/23/24 Range/Units 16:17 WBC 9.5 (4.8-10.8) X10*3/uL RBC 4.57 L (4.60-5.80) X10*6/uL Hgb 12.7 L (14.0-18.0) g/dl Hct 38.1 L (42.0-52.0) % MCV 83.4 (80.0-98.0) fL MCH 27.8 (27.0-33.0) pg MCHC 33.3 (31.0-36.0) g/dl RDW 13.0 (11.0-16.0) % Plt Count 214 D (160-400) X10*3/uL MPV 8.9 L (9.4-12.4) fL Immature Gran % (Auto) 0.3 (0.0-0.4) % Neut % (Auto) 55.7 (45-73) % Lymph % (Auto) 33.5 (20-40) % [place] % (Auto) 7.4 (2-11) % Eos % (Auto) 2.6 (0-4) % Baso % (Auto) 0.5 (0-2) % Lymph # (Auto) 3.2 (1.2-4.9) X10*3/uL [place] # (Auto) 0.7 (0.1-1.2) X10*3/uL Eos # (Auto) 0.3 (0.0-0.4) X10*3/uL Baso # (Auto) 0.1 (0.0-0.2) X10*3/uL Abs Immat Gran (auto) 0.03 (0.00-0.03) X10*3/uL Absolute Neuts (auto) 5.3 (2.0-8.3) x10*3/uL Absolute Nucleated RBC 0.000 (0.0-0.012) X10*3/uL Nucleated RBC % (auto) 0.0 (0.0-0.2) /100WBC Sodium 139 (135-145) mmol/L Potassium 3.3 (3.3-5.1) mmol/L Chloride 103 (96-108) mmol/L Carbon Dioxide 28 (22-29) mmol/L Anion Gap 11 L (12-20) BUN 14 (9-16) mg/dL Creatinine 0.92 (0.5-1.4) mg/dL Estim Creat Clear Calc 124.1 Estimated GFR > 60 Random Glucose 107 (60-115) mg/dL Calcium 9.5 D (8.4-10.2) mg/dL Total Bilirubin 0.5 (0.0-1.0) mg/dL AST 25 (5-37) U/L ALT 33 (0-40) U/L Alkaline Phosphatase 77 (39-117) U/L Total Protein 8.3 H (6.5-8.0) g/dL Albumin 4.4 (3.5-5.0) g/dL Urine Color Yellow Urine Appearance Clear Urine pH 6.5 (5.0-9.0) Ur Specific [place] 1.015 (1.005-1.025) Urine Protein Negative (Neg-Trace) mg/dL Urine Glucose (UA) Negative (Negative) mg/dL Urine Ketones Negative (Negative) mg/dL Urine Blood Small (1+) H (Negative) Urine Nitrite Negative (Negative) Ur Leukocyte Esterase Negative (Negative) Urine RBC 0-2 (0-2) /HPF Urine WBC 0-5 (0-5) /HPF Ur Squamous Epith Cells 0-2 (0-2) /HPF Urine Bacteria None Seen (None Seen) Hyaline Casts 0-2 (0-2) /LPF Salicylates < 5.0 L (15-30) mg/dL Urine Opiates Screen Not Detected (Not Detect) Urine Fentanyl Screen POSITIVE H (Not Detect) Acetaminophen < 3 (<30) mcg/mL Ur Barbiturates Screen Not Detected (Not Detect) Ur Phencyclidine Scrn Not Detected (Not Detect) Ur Amphetamines Screen Not Detected (Not Detect) U Benzodiazepines Scrn Not Detected (Not Detect) Urine Cocaine Screen POSITIVE H (Not Detect) U Marijuana (THC) Screen POSITIVE H (Not Detect) Ethyl Alcohol < 10 mg/dL COVID-19 (MICHAEL) Negative (Negative) COVID-19 Clin Com See Note Discharge Plan Discharge Clinical Impression: Depression Patient Disposition: Still a Patient Prescriptions: No Action No Known Home Meds
[2024-01-23 14:04] VITALS: BP 167/102; PULSE 108; RESP 18; TEMP 36.6; O2SAT 99; BMI 36.0
[2024-01-23 16:23] LABS: MANUAL DIFF FLAG NO
[2024-01-23 16:25] LABS: Basophils Absolute Auto 0.1 X10*3/uL (0.0-0.2); Basophils Percent Auto 0.5 % (0-2); Eosinophils Absolute Auto 0.3 X10*3/uL (0.0-0.4); Eosinophils Percent Auto 2.6 % (0-4); Hematocrit 38.1 % (42.0-52.0); Hemoglobin 12.7 g/dl (14.0-18.0); Imm Gran Abs Auto 0.03 X10*3/uL (0.00-0.03); Imm Gran Pct Auto 0.3 % (0.0-0.4); Lymphocytes Absolute Auto 3.2 X10*3/uL (1.2-4.9); Lymphocytes Percent Auto 33.5 % (20-40); Mean Corpuscular HGB Conc 33.3 g/dl (31.0-36.0); Mean Corpuscular Hemoglobin 27.8 pg (27.0-33.0); Mean Corpuscular Volume 83.4 fL (80.0-98.0); Mean Platelet Volume 8.9 fL (9.4-12.4); Monocytes Absolute Auto 0.7 X10*3/uL (0.1-1.2); Monocytes Percent Auto 7.4 % (2-11); Neutrophils Absolute Auto 5.3 x10*3/uL (2.0-8.3); Neutrophils Percent Auto 55.7 % (45-73); Platelet Count 214 X10*3/uL (160-400); Red Blood Count 4.57 X10*6/uL (4.60-5.80); White Blood Count 9.5 X10*3/uL (4.8-10.8)
[2024-01-23 16:30] LABS: Appearance Urine Clear; Color Urine Yellow; Glucose Urine UA Negative (Negative); Leukocyte Esterase Urine Negative (Negative); Nitrite Urine Negative (Negative); PH 6.5 (5.0-9.0); Specific Gravity - Urine 1.015 (1.005-1.025); UMIC TRIGGER UA YES; Urine Blood Small (1+) (Negative); Urine Ketones Negative (Negative); Urine Protein Negative (Neg-Trace)
[2024-01-23 16:43] LABS: Amphetamine Screen Urine Not Detected (Not Detect); Barbiturates, Urine Not Detected (Not Detect); Benzodiazepines Screen Urine Not Detected (Not Detect); Cannabinoid Screen Urine POSITIVE (Not Detect); Cocaine Screen Urine POSITIVE (Not Detect); Fentanyl, urine POSITIVE (Not Detect); Opiate Screen Urine Not Detected (Not Detect); Phencyclidine Screen Urine Not Detected (Not Detect)
[2024-01-23 16:44] LABS: Acetaminophen LAB < 3 mcg/mL (<30); Alanine Aminotransferase 33 U/L (0-40); Albumin Level 4.4 g/dL (3.5-5.0); Alkaline Phosphatase 77 U/L (39-117); Anion Gap 11 (12-20); Aspartate Amino Transferase 25 U/L (5-37); Bilirubin Total 0.5 mg/dL (0.0-1.0); Blood Urea Nitrogen 14 mg/dL (9-16); Calcium 9.5 mg/dL (8.4-10.2); Carbon Dioxide 28 mmol/L (22-29); Chloride 103 mmol/L (96-108); Creatinine Clr Calc Pharmacy 124.1; Estimated Glomerular Filt Rate > 60; Ethanol < 10 mg/dL; Glucose Random 107 mg/dL (60-115); Potassium 3.3 mmol/L (3.3-5.1); Salicylate < 5.0 mg/dL (15-30); Sodium 139 mmol/L (135-145); Total Protein 8.3 g/dL (6.5-8.0)
[2024-01-23 16:48] LABS: COVID-19 Test Negative (Negative); IDNOW Serial# 152EDE1D
[2024-01-23 16:58] LABS: Bacteria Urine None Seen (None Seen); Hyaline Casts Urine 0-2 /LPF (0-2); RBC Urine 0-2 /HPF (0-2); Squamous Epithelial Cell Urine 0-2 /HPF (0-2); WBC Urine 0-5 /HPF (0-5)
[2024-01-23] MEDS: LORazepam 1 MG TABLET 2 MG PO (17:25)
[2024-01-23 17:48] VITALS: BP 148/105; PULSE 78
--- NOTE | 2024-01-23 20:34 | PC.NURSE ---
Assumed care of this Pt at 1900. Pt appears to be sleeping, equal, non labored respirations. [employer] apparent distress noted. Danna from care team in to see Pt.
--- NOTE | 2024-01-23 22:24 | MHC.CARE ---
RAD Team conducted a Dual Dx bedsearch for this pt. Referral [facility]ed to [facility], [facility] and [facility] for review tomorrow. No beds available tonight. RAD Team will follow up tomorrow.
[2024-01-24] MEDS: LORazepam 1 MG TABLET 2 MG PO (05:48)
--- NOTE | 2024-01-24 05:49 | PC.NURSE ---
Pt reporting sweating and restless legs, requesting something for withdrawals . Pt medicated per JAN. Pt ambulated to the BR with steady gait. Pt reports SI with plan to jump in front of car, also reports having a lot of problems at home .
[2024-01-24 05:56] VITALS: BP 151/93; PULSE 68; RESP 16; TEMP 36.6; O2SAT 99
[2024-01-24 05:57] VITALS: PULSE 68
--- NOTE | 2024-01-24 07:30 | PC.NURSE ---
assumed care of pt at 0700. nurse from [facility] called for report on pt. Tricia, community music therapist working on ambulance transfer to facility.
[2024-01-24 08:49] VITALS: PULSE 94
[2024-01-24 08:58] VITALS: BP 140/103; PULSE 94; RESP 18; TEMP 36.8; O2SAT 100
[2024-01-24] MEDS: methADONE HCl 20 MG/2 ML ORAL.CONC PO (09:04)
--- NOTE | 2024-01-24 09:15 | PC.NURSE ---
t/w went to wake pt up to let him know he was leaving to go to inpatient facility at 0900. pt was wrapped in blankets and stated that he was drenched in sweat and freezing. t/w performed a COWS on pt and pt scored 12. vitals obtained and updated in pt worklist. Phuong Shirley, and Shima Tyson notified about pt condition. Shima Tyson ordered 20mg methadone to which pt was dosed with prior to departure. RN at [facility] notified and aware. pt en route to facility.
== END 2024-01-24 09:20 ==
PROVIDERS: Physician Assistant Medical; Emergency Provider Emergency Medicine Emergency Medical Services; PCP Nurse Practitioner Family
DX: F33.1 Major depressive disorder, recurrent, moderate (principal); R45.851 Suicidal ideations; F11.20 Opioid dependence, uncomplicated; F17.210 Nicotine dependence, cigarettes, uncomplicated; Z79.899 Other long term (current) drug therapy; Z11.52 Encounter for screening for COVID-19
CPT/HCPCS: 80053; 80143; 80179; 80307; 81001; 85025; 87635; 99285; S9485

== ENCOUNTER 2025-02-18 07:19 | Emergency (ER) | payer MEDICAID, SELFPAY ==
--- NOTE | ~2025-02-18 | XR_ITS ---
EXAMINATION: X-RAY BILATERAL KNEES, 4 VIEWS. CLINICAL INFORMATION: Status post fall. TECHNIQUE: 4 views of the knees, bilaterally. COMPARISON: None FINDINGS: Right knee: No acute cortical disruption or malalignment. No suprapatellar bursa joint effusion. No lytic or blastic lesions. No metallic or radiopaque foreign body. Left knee: No acute cortical disruption or malalignment. No suprapatellar bursa joint effusion. No lytic or blastic lesions. No metallic or radiopaque foreign body. XR/XR Knee Prakash 4V IMPRESSION: No acute fracture or dislocation. Electronically signed by: Klaus Akhtar MD 02/18/2025 08:45 AM EDT
[2025-02-18 07:26] VITALS: BP 125/85; PULSE 71; RESP 19; TEMP 36.6; O2SAT 97; BMI 36.0
--- NOTE | 2025-02-18 09:22 | ED_ITS ---
HPI - Extremity Injury (Lower) General Chief Complaint: Extremity Injury, Lower Stated Complaint: L knee injury @ work Time Seen by Provider: 02/18/25 09:26 Source: patient, RN notes reviewed and old records reviewed Mode of arrival: ambulatory Limitations: no limitations History of Present Illness ED Provider: Mary HPI Narrative: Patient is a 40-year-old male presenting to the emergency department with complaint of bilateral knee pain, left greater than right since an injury at work. Patient states that he works for himself, was walking through rafters when he fell, causing him to lean forward while his lower legs remains stationary. Has had pain to medial aspect of left knee since and developed a right knee pain this morning. Has been able to ambulate. Denies any numbnes s/tingling. MD complaint: knee injury Place: work Related Data Home Medications ?Medication ?Instructions ?Recorded ?Confirmed No Known Home Meds 01/23/24 01/23/24 Allergies Allergy/AdvReac Type Severity Reaction Status Date / Time No Known Allergies Allergy Verified 02/18/25 07:28 Review of Systems Review of Systems: As per HPI Yes all other systems are reviewed and are negative Constitutional: Constitutional: Reports as per HPI [facility] Past Medical History Medical History Acute hypoxemic respiratory failure Multifocal pneumonia Active substance abuse Social History Social History Household Members: Spouse and Children Housing: House Do you presently have visiting nurse or other home services: No Alcohol intake: current Alcohol intake frequency: does not drink Comment: sitter Patient Tobacco Use Status: Current everyday Tobacco user Tobacco use type: Cigarette Cigarettes Per Day: 20 Years Smoked: 20 Second Hand Smoke Exposure: No Substance Use Type: Crack/Cocaine and Marijuana Advance Directives: No Advance Directives Information Provided: No Do you have a plan to hurt others: No Plan service: No Physical Exam Vital Signs: Vital Signs: Last Vital Signs Temp 98 F 02/18/25 09:47 Pulse 71 02/18/25 09:47 Resp 19 02/18/25 09:47 BP 125/85 02/18/25 09:47 Pulse Ox 97 02/18/25 09:47 O2 Del Method Room Air 02/18/25 09:47 BMI result Body Mass Index 36.0 Vital signs have been reviewed and appear to be correct. Blood pressure normal. Heart rate normal. Respiratory rate normal. Temperature normal. Oxygen saturation normal. Const: General: cooperative, healthy appearing and no acute distress Orientation/consciousness: oriented to person, oriented to place, oriented to time and patient oriented x3 Limitations: no limitations HEENT: Head: Yes normocephalic and Yes atraumatic Ears: external ears normal General nose exam: Normal external nose present Face and sinus: Yes face symmetric Mouth: oropharynx normal and moist mucous membranes Throat: Yes uvula midline Eyes: Pupils: Equal, round and reactive pupils present Neck: Neck: Yes normal visual inspection and Yes supple Resp: Effort & Inspection: normal respiratory effort and able to speak in complete sentences Auscultation: clear to auscultation bilaterally Cardio: Rate: regular rate Rhythm: regular rhythm Heart sounds: S1 normal heart sound present and S2 normal heart sound present GI: Palpation (GI): Soft to palpation and nontender Auscultation: normoactive bowel sounds : General: Yes no CVA tenderness Back/Spine/Pelvis: Back: no CVA tenderness Skin: General skin exam: elasticity normal and turgor normal Neuro: General: oriented to person, oriented to place, oriented to time, patient oriented x3, moves all extremities, no focal motor deficits and CN's II- XI intact bilaterally Cranial nerves: Yes Equal, round and reactive pupils present Cognition (Neuro): normal cognition Extrem: General: Yes full ROM, Yes no pedal edema and Yes no calf tenderness Right lower extremity: knee Details: normal to inspection, normal ROM and knee ligament exam normal; no tenderness and foot Details: vascular exam Details: dorsalis pedis pulse present, posterior tibial pulse present and normal capillary refill Left lower extremity: knee Details: normal to inspection, tenderness Location: of the medial joint line, swelling (medially), abnormal ROM (pain with full extension/flexion) and knee ligament exam abnormal Details: valgus stress test Details: pain noted; varus stress test not performed and foot Details: vascular exam Details: dorsalis pedis pulse present, posterior tibial pulse present and normal capillary refill Psych: Mental Status: mental status grossly normal Affect: normal affect Thought process: Normal thought process present Medical Decision Making Medical Decision Making MDM Narrative: Patient is a 40-year-old male presenting to the emergency department with complaint of bilateral knee pain, left greater than right since an injury at work. On exam patient is awake, A+Ox3, VS WNL, afebrile, normal neurological exam without focal deficits, physical exam findings as above. Given reported symptoms and physical exam findings, initial differential includes but is not limited to knee strain, sprain, fracture, effusion, ligamentous injury. Bilateral knee X-rays notable for no acute fractures or effusions. My interpr etation is in agreement with the radiologist's interpretation. Results discussed with patient all questions answered. Some concern for MCL strain/sprain, patient placed in knee immobilizer and provided with crutches and crutch teaching. Will refer to orthopedics for further evaluation and management. Return precautions discussed. Patient verbalized understanding of and agreement with plan. Differential Diagnosis Differential Diagnoses: The differential diagnosis associated with the presentation includes As per [facility] Independent Interpretation I performed an independent interpretation of an: Plain X-Ray Interpretation: No acute fracture effusion bilateral knees Radiology Impression Discussion of test interpretation with radiology: I have reviewed the radio logist's reading. Radiologist Impression: Right knee: No acute cortical disruption or malalignment. No suprapatellar bursa joint effusion. No lytic or blastic lesions. No metallic or radiopaque foreign body. Left knee: No acute cortical disruption or malalignment. No suprapatellar bursa joint effusion. No lytic or blastic lesions. No metallic or radiopaque foreign body. XR/XR Knee Prakash 4V IMPRESSION: No acute fracture or dislocation. External Record Review External record reviewed: Inpatient record, Office record and Outpatient record Discharge Plan Discharge Clinical Impression: Left knee sprain Patient Disposition: Home, Self-Care Instructions: Knee Sprain (DC), Crutch Instructions (ED), Knee Immobilizer (ED) Additional Instructions: You have been evaluated in the emergency department today for knee pain. Your evaluation did not find evidence of medical conditions requiring emergent intervention at this time. We recommend that you follow up with the orthopedic office for further evaluation and management. We have provided a knee immobilizer and crutches for you to use while your knee heals. Keeo Please rest, ice, and elevate your leg. We recommend you take 600mg ibuprofen every 6 hours or 650mg Tylenol every 6 hours as needed for pain. If needed you can alternate these medications as they take 1 medication every 3 hours. For instance at noon take ibuprofen, then at 3:00 p.m. take Tylenol, then at 6:00 p.m. take ibuprofen. Please schedule an appointment for follow-up with your primary care provider this week. Return to the emergency department if you experience worsening pain, numbness, tingling, change of color in your leg, or any other concerning symptoms. Prescriptions: No Action No Known Home Meds Referrals: [facility] Orthopedic Surgeons [Provider Group] - 3 days (? MCL injury) Interventions: ED Discharge Assessment Last Done: 02/18/25 09:47 Discharge Date/Time: 02/18/25 09:48 Print Language: Ivorian
[2025-02-18 09:47] VITALS: BP 125/85; PULSE 71; RESP 19; TEMP 36.6; O2SAT 97
--- OUTSIDE RECORDS SUMMARY | 2025-02-18 11:03 | XMS_ITS | Clinical Summary ---
Author Organization [employer] Address [address] [place] [address] Care Team Providers Care Rewinder Name Role Phone Unavailable Primary Care Provider Unavailabl e Allergies No known active allergies Medications buprenorphine-na loxone (Suboxone) 2-0.[address] under the tongue. Active Social History Tobacco Use Types Packs/Day Years Used Date Smoking Tobacco: Never Smokeless Tobacco: Never Tobacco Cessation:Counseling Given: Not Answered Sex and Gender Information Value Date Recorded Sex Assigned at Male 03/15/2023 1:09 PM EDT Legal Sex Male 1:04 PM EDT Gender Identity Male 03/15/2023 1:09 PM EDT Sexual Orientation Straight 03/15/2023 1: 09 PM EDT Plan of Treatment Health Maintenance Due Date Last Done Comments Dental Oral Exam 1984 Dental Prophylaxis 1984 Dental X-Ray: Full Mouth 1984 Depression Screening 1984 HIV Screening 1984 Lipid Panel 1984 SDOH Screening 1984 Alcohol/Substance Use Screening 1996 Family Planning (PISQ) 02/13/1999 Hepatitis C Screening 02/13/2002 DTaP/Tdap/Td Vaccines (1 - Tdap) 02/13/2003 Hepatitis B Vaccines (1 of 3 - 19+ 3-dose series) 02/13/2003 Tobacco Screening 03/15/2024 03/15/2023 Dental X-Ray: Bitewings 03/16/2024 03/15/2023 COVID-19 Vaccine ( - 2023-2 5 season) 2024 Influenza Vaccine (#1) 2024 Zoster Vaccines (1 of 2) 02/13/2034 RSV Patients and Pa tients Aged 60 years or older (1 - 1-dose 75+ series) 02/13/2059 HIB Vaccines Aged Out No longer eligi ble based on patient's age to complete this topic HPV Vaccines Aged Out No longer eligi ble based on patient's age to complete this topic Hepatitis A Vaccines Aged Out No long er eligible based on patient's age to complete this topic IPV Vaccines Aged Out No longer eligi ble based on patient's age to complete this topic Meningococcal Vaccine Aged Out No christopher henry eligible based on patient's age to complete this topic Pneumococcal Vaccine: Pediat rics (0 to 5 Years) and At-Risk Patients (6 to 49) Years) Aged Out No longer elig ible based on patient's age to complete this topic RSV under 20 months Aged Out No longe r eligible based on patient's age to complete this topic Rotavirus Vaccines Aged Out No longer eligible based on patient's age to complete this topic Procedures Procedure Name Priority Date/Time Associated Diagnosis Comments BITEWING - SINGLE RADIOGRAPHIC IMAGE Routine 03/15/2023 1:00 PM EDT Pain, dental from Last 3 Months or Most Recently Relevant to Health Maintenance
== END 2025-02-18 09:48 | disposition home or self-care (01) ==
PROVIDERS: Emergency Provider Emergency Medicine; PCP Nurse Practitioner Family
DX: S83.92XA Sprain of unspecified site of left knee, initial encounter (principal); W13.8XXA Fall from, out of or through other building or structure, initial encounter; M25.562 Pain in left knee; M25.561 Pain in right knee; Y93.9 Activity, unspecified; Y92.9 Unspecified place or not applicable; Y99.0 Civilian activity done for income or pay
CPT/HCPCS: 73564; 99282; 99283

== ENCOUNTER → 2025-02-18 08:30 | Outpatient (BNV) | payer MEDICAID, SELFPAY | PROVIDERS: PCP Nurse Practitioner Family; Visit Provider Radiology Diagnostic Radiology | DX: S83.92XA Sprain of unspecified site of left knee, initial encounter (principal); W19.XXXA Unspecified fall, initial encounter | CPT/HCPCS: 73564 ==

== ENCOUNTER 2025-03-25 21:41 | Outpatient (REF) | payer MEDICAID, SELFPAY | END 2025-03-25 21:42 | disposition home or self-care (01) | LOC: HO.HOSX 21:41 | PROVIDERS: Visit Provider Physician Assistant | DX: Z13.89 Encounter for screening for other disorder (principal) ==

== ENCOUNTER 2025-03-26 09:29 | Outpatient (REF) | payer MEDICAID, SELFPAY ==
--- NOTE | ~2025-03-26 | XR_ITS ---
CLINICAL HISTORY: M25.569 - Pain in unspecified knee --- Additional Notes or Special Instructions: bs sunrise 1 view right knee Comparison: DX - XR KNEE LT 2V - 03/26/25 10:47 EDT CR/RI/SR - XR KNEE VINICIO 4V - 02/18/25 08:28 EDT Findings: No fractures or dislocations. No significant loss of joint space, osteophytes, or erosions. No radiopaque foreign body. IMPRESSION: 1. Unremarkable sunrise view of the right knee. This document has been electronically signed by: Bushra Carias MD on 03/26/2025 16:02:37
--- NOTE | ~2025-03-26 | XR_ITS ---
CLINICAL HISTORY: M25.562 - Pain in left knee --- Additional Notes or Special Instructions: BS sunris e AP standing view bilateral knees [place] view left knee Comparison: CR/MD/SR - XR KNEE VINICIO 4V - 02/18/25 08:28 EDT Findings: No fractures or dislocations. No significant arthritic change or erosions. No joint effusion. No radiopaque foreign body. IMPRESSION: 1. No acute findings. This document has been electronically signed by: Bushra Carias MD on 03/26/2025 16:02:14
--- OUTSIDE RECORDS SUMMARY | 2025-03-27 10:15 | XMS_ITS | Clinical Summary ---
Author Organization [employer] Address [address] [place] [address] Care Team Providers Care Scale Tank Operator Name Role Phone Unavailable Primary Care Provider [...]
--- OUTSIDE RECORDS SUMMARY | 2025-03-27 10:15 | XMS_ITS | Clinical Summary ---
Author Organization [facility] Address [address] [place] [address] Care Team Providers Care Dual Hose Cementer Name Role Phone Unavailable Primary Care Provider Unavailabl e Social History Tobacco Use Types Packs/Day Years Used Date Smoking Tobacco: Never Assessed Sex and Gender Information Value Date Recorded Sex Assigned at Not on file Legal Sex Male 12:50 PM EDT Gender Identity Not on file Sexual Orientation Not on file Plan of Treatment Upcoming Encounters Date Type Department Care Team (Late st Contact Info) Description 04/01/2025 4:00 PM EDT Consult Kim Benitez MD [facility] [address] [place] [address] Kim Benitez MD [address] [place] [address] Health Maintenance Due Date Last Done Comments DTaP,Tdap,and Td Vaccines (1 - Tdap) 02/13/2003 Hepatitis B Vaccines (1 of 3 - 19+ 3-dose series) 02/13/2003 COVID-19 Vaccine ( - 2023-2 5 season) 2024 Cholesterol Screening (Lipid Panel) 03/21/2025 Depression Screening 03/21/2025 HIV Screening 03/21/2025 Hepatitis C Screening 03/21/2025 Social Influencers of Health Screening 03/21/2025 Influenza Vaccine (Season Ended) 2025 HIB Vaccines Aged Out No longer eligi [...] on patient's age to complete this topic MMR Vaccines Aged Out No longer eligi ble based on patient's age to complete this topic Meningococcal ACWY Vaccine Aged Out N o longer eligible based on patient's age to complete this topic Meningococcal B Vaccine Aged Out No l onger eligible based on patient's age to complete this topic Pneumococcal Vaccine: Pediat rics (0 to 5 Years) and At-Risk Patients (6 to 64 Years) Aged Out No longer eligible b ased on patient's age to complete this topic RSV Immunization Patients Un gianluca 20 months Aged Out No longer eligible b ased on patient's age to complete this topic Varicella Vaccines Aged Out No longer eligible based on patient's age to complete this topic
== END 2025-03-26 09:30 | disposition home or self-care (01) ==
LOC: HO.HOSX 09:29
PROVIDERS: Visit Provider Physician Assistant
DX: M22.2X1 Patellofemoral disorders, right knee (principal); M22.2X2 Patellofemoral disorders, left knee; M23.92 Unspecified internal derangement of left knee
CPT/HCPCS: 73560; 99212

== ENCOUNTER 2025-03-26 10:45 | Outpatient (AMB) | payer MEDICAID, SELFPAY ==
--- NOTE | 2025-03-26 10:48 | A.OFFVIS_ITS ---
Vital Signs 03/26/25 11:02 Height 5 ft 7 in Weight 230 lb BMI 36.0 Intake Visit Reasons: ED F/U- Left knee sprain-ED f/U 02/17/25 Intake Note: Sebas is a 40 year old male who presents today for a new patient evaluation of left knee sprain, DOI 02/17/25. Patient presented to [facility] ER the following day after a work injury to both of his knees, with the left greater than right. He was walking through rafters when he fell, causing him to lean forward while his lower leg remain stationary. Today patient reports that he has constant pain that is located at the medial aspects of his left and right knee. His pain makes it difficult to sleep at night. 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 No other treatment. Finds little to no relief with ibuprofen. No other tx. Allergies No Known Allergies Allergy (Verified 03/26/25 10:58) HPI HPI ED F/U- Left knee sprain-ED f/U 02/17/25: Details: 40-year-old gentleman presents to the office today for bilateral knee pain left greater than right. He was involved in a work-related injury On 02/17/2025 , as he was walking on rafters he fell almost getting pinched between rafters. He was seen in the Ed the following day due to difficulty with walking. Since the DOI, he has had some improvement; however, a few days ago he slipped and c/o increased pain. Pain is primarily on the medial side. She c/p pain with stairs. No prior knee pain. [facility] Medical History Acute hypoxemic respiratory failure Multifocal pneumonia Active substance abuse Social History (Updated 03/26/25 @ 11:00 by Teodora Guzman Xander) Household Members: Spouse and Children Housing: House Do you presently have visiting nurse or other home services: No Alcohol intake: current Alcohol intake frequency: does not drink Comment: sitter Patient Tobacco Use Status: Former Tobacco user Tobacco use type: Cigarette Cigarettes Per Day: 20 Years Smoked: 20 Second Hand Smoke Exposure: No Substance Use Type: Crack/Cocaine and Marijuana service: No Current occupation: [employer], right hand dominant Review of Systems Const All systems reviewed & are unremarkable except as noted in HPI and below Physical Exam Vital Signs: BMI result Body Mass Index 36.0 Const General: cooperative and no acute distress Orientation/consciousness: patient oriented x3 Resp Effort & Inspection: normal respiratory effort and able to speak in complete sentences Cardio Peripheral pulses: Peripheral pulses 2+ throughout Neuro General: patient oriented x3 Extrem Other: Left knee skin intact, no erythema or joint effusion. Tenderness along the medial joint line. ROM full with crepitus. Positive steinmans. No ligamentous laxity. NVI. Right knee skin intact, no erythema or joint effusion. Tenderness along the medial joint line. ROM full with crepitus. Negative steinmans. No ligamentous laxity. NVI. Results Reviewed Results Reviewed: Xrays were obtained in the office today and personally reviewed by me of bilat knee show PF OA Assessment & Plan Assessment & Plan (1) Patellofemoral arthralgia of both knees: Code(s): M22.2X1 - Patellofemoral disorders, right knee; M22.2X2 - Patellofemoral disorders, left knee Category: Medical (2) Internal derangement of left knee: Code(s): M23.92 - Unspecified internal derangement of left knee Category: Medical Plan An order for PT has been placed to work on ROm and strength. I did order an MRI of Herlinda knee to further assess the soft tissues as he continues to have limitations with activities , especially with the left causing pain and catching with pivoting and deep bending. He has been fit for bilat knee brace in the office today and will see me back once the MRi is complete. Orders: Orders MR knee RT wo con Today M17.11 - Unilateral primary osteoarthritis, right knee PT Evaluation and Treatment Today M22.2X1 - Patellofemoral disorders, right knee, M22.2X2 - Patellofemoral disorders, left knee, M23.92 - Unspecified internal derangement of left knee XR knee RT 2V Today M25.569 - Pain in unspecified knee XR knee LT 2V Today M25.562 - Pain in left knee MR knee LT wo con Today M17.12 - Unilateral primary osteoarthritis, left knee Coding Level of Care Code New Pt Level 3 (94421) Complex EM visit Add On G2211 Diagnoses Patellofemoral arthralgia of both knees M22.2X1; M22.2X2 Internal derangement of left knee M23.92
[2025-03-26 11:02] VITALS: BMI 36.0
--- OUTSIDE RECORDS SUMMARY | 2025-03-26 11:48 | XMS_ITS | Clinical Summary ---
Author Organization [employer] Address [address] [place] [address] Care Team Providers Care Log Washer Name Role Phone Unavailable Primary Care Provider [...]
== END 2025-03-26 11:39 | disposition home or self-care (01) ==
LOC: HO.HOS 10:45
PROVIDERS: PCP Nurse Practitioner Family; Visit Provider Physician Assistant
DX: M22.2X1 Patellofemoral disorders, right knee (principal); M22.2X2 Patellofemoral disorders, left knee; M23.92 Unspecified internal derangement of left knee
CPT/HCPCS: 99213

== ENCOUNTER → 2025-03-26 10:47 | Outpatient (BNV) | payer MEDICAID, SELFPAY | PROVIDERS: Visit Provider Radiology Diagnostic Radiology | DX: M25.562 Pain in left knee (principal); M25.561 Pain in right knee | CPT/HCPCS: 73560 ==

== ENCOUNTER → 2025-04-04 07:13 | Outpatient (BNV) | payer MEDICAID, SELFPAY | PROVIDERS: Visit Provider Radiology Diagnostic Radiology | DX: M25.562 Pain in left knee (principal); M25.561 Pain in right knee | CPT/HCPCS: 73721 ==

== ENCOUNTER 2025-04-04 07:18 | Outpatient (REF) | payer MEDICAID, SELFPAY ==
--- NOTE | ~2025-04-04 | MR_ITS ---
EXAMINATION: MR KNEE WITHOUT CONTRAST, LEFT CLINICAL INFORMATION: Fall one month ago, with pain bilateral medial knees. 40-year-old male. COMPARISON: No prior MRI. Left knee radiographs 03/26/2025. TECHNIQUE: MRI of the left knee without contrast was performed using routine sequences on a 1.5 Alice Siemens high-field scanner. FINDINGS: MENISCI: Medial Meniscus: Appears intact without definite tear. Lateral Meniscus: There is focal high T2 signal in the posterior horn near the root attachment, for which root entry zone tearing is suspected. (Series 12, image 20). Remainder of the meniscus appears intact. LIGAMENTS: Anterior Cruciate: Suspect partial disruption of the ligament at the femoral attachment site, with increased T2 signal, consistent with partial tear. There is no complete tear. Posterior Cruciate: Appears intact and normal in signal. Medial Collateral: There is a near complete, high-grade tear of the MCL at the femoral insertion with thickening and irregularity of the ligament . (Series 8, image 10; series 12, image 18). There is edema surrounding the ligament. Lateral Collateral Complex: The biceps femoris tendon, conjoined tendon, fibular collateral ligament, and popliteus tendon all appear intact and normal in signal. EXTENSOR MECHANISM: Intact and normal in signal. There is previously femoral edema, possibly representing prepatellar bursitis. Hoffa's fat pad, the prefemoral fat pad, and suprapatellar fat pad are all normal in signal. PATELLAR RETINACULUM: Appears grossly intact. BONE: No gross bone marrow edema to suggest fracture or contusion. No abnormal infiltrating bone marrow signal. JOINTS/CARTILAGE: Medial Compartment: Cartilage appears intact without focal defect or injury. Lateral Compartment: Cartilage appears intact without focal defect or injury. Patellofemoral Compartment: Normal patellar alignment within the trochlea. Cartilage appears intact without focal defect or cartilage injury. JOINT FLUID AND BURSAE: There is a moderate size joint effusion. Remainder of the bursal structures appear normal. OTHER: The popliteal fossa has a normal appearance. Mild edema within the popliteus muscle is consistent with a strain injury. MR/MR knee LT wo con IMPRESSION: 1. There is high-grade tearing of the MCL at the medial femoral attachment. There is edema surrounding the ligament. 2. There is a partial tear injury of the ACL, femoral attachment. There is no complete tear. 3. There is a joint effusion. 4. There is prefemoral edema, suggestive of prepatellar bursitis. 5. There is a strain injury of the popliteus muscle. 6. There is no posterolateral corner injury. 7. Suggestion of posterior root entry zone tear, lateral meniscus. 8. There is no bone marrow contusion or fracture. Electronically signed by: Milton Vega MD 04/04/2025 09:18 AM EDT
--- NOTE | ~2025-04-04 | MR_ITS ---
EXAMINATION: MR KNEE WITHOUT CONTRAST, RIGHT CLINICAL INFORMATION: Fall one month ago, with pain bilateral medial knees. 40-year-old male. COMPARISON: None available. TECHNIQUE: MRI of the right knee without contrast was performed using routine sequences on a 1.5 Alice Siemens high-field scanner. FINDINGS: MENISCI: Medial Meniscus: There is a horizontal cleavage tear extending to the free margin of the body and posterior horn. Lateral Meniscus: Intact and normal in signal. LIGAMENTS: Anterior Cruciate: Intact and normal in signal. Posterior Cruciate: Intact and normal in signal. Medial Collateral: Intact with mild thickening of the superior fibers. There is mild edema surrounding the ligament suggestive of grade 1 injury. Lateral Collateral Complex: The biceps femoris tendon, conjoined tendon, fibular collateral ligament, and popliteus tendon are intact. EXTENSOR MECHANISM: Appears intact and normal in signal. No discrete tear. Hoffa's fat pad, the prefemoral fat pad, in the suprapatellar fat pad are grossly normal in signal. PATELLAR RETINACULUM: Intact bilaterally. No discrete tear. The medial patellofemoral ligament is intact. BONE: There is no gross bone marrow edema to suggest contusion or fracture. No abnormal infiltrating bone marrow signal. JOINTS/CARTILAGE: Medial Compartment: Cartilage appears intact without focal defect or injury. Lateral Compartment: Cartilage appears intact without focal defect or injury. Patellofemoral Compartment: Normal patellar alignment within the trochlea. Cartilage appears intact without focal defect or cartilage injury. JOINT FLUID AND BURSAE: There is a moderate size joint effusion. OTHER: There is edema within the popliteus muscle consistent with strain injury. There is edema within the prepatellar region suggestive of bursitis. MR/MR knee RT wo con IMPRESSION: 1. Grade 1 strain MCL. 2. Horizontal cleavage tear of the medial meniscus extending to the free margin of the body and posterior horn. 3. Strain injury of the popliteus muscle. 4. Prepatellar soft tissue edema suggestive of bursitis. 5. There is a joint effusion. 6. There is no posterolateral corner injury. 7. There is no bone marrow contusion or fracture. Electronically signed by: Milton Vega MD 04/04/2025 11:01 AM EDT
--- OUTSIDE RECORDS SUMMARY | 2025-04-04 07:19 | XMS_ITS | Clinical Summary ---
Author Organization [employer] Address [address] [address] Care Team Providers Care Glass Sander Belt Name Role Phone Unavailable Primary Care Provider [...] 1984 Lipid Panel 1984 SDOH Screening 1984 Disability Screening 1984 Alcohol/Substance Use Screening 1996 Family Planning (PISQ) 02/13/1999 Hepatitis C Screening 02/13/2002 DTaP/Tdap/Td Vaccines (1 - Tdap) 02/13/2003 Hepatitis B Vaccines (1 of 3 - 19+ 3-dose series) 02/13/2003 Tobacco Screening 03/15/2024 03/15/2023 Dental X-Ray: Bitewings 03/16/2024 03/15/2023 COVID-19 Vaccine (1 - 2023-2 5 season) 2024 Influenza Vaccine [...]
== END 2025-04-04 07:19 | disposition home or self-care (01) ==
LOC: HO.MRI 07:18
PROVIDERS: Visit Provider Physician Assistant
DX: M17.0 Bilateral primary osteoarthritis of knee (principal)
CPT/HCPCS: 73721

== ENCOUNTER 2025-05-01 09:39 | Outpatient (AMB) | payer MEDICAID, SELFPAY ==
--- NOTE | 2025-05-01 09:41 | A.OFFVIS_ITS ---
<Statement entered by Darwin Mayorga MD - 05/02/25 12:34> I saw and evaluated this patient. I counseled him on operative versus nonoperative intervention. He is asymptomatic tear of his right medial meniscus and I recommend right knee arthroscopy. I discussed the risks, benefits and alternatives to surgery. Vital Signs 05/01/25 09:44 Height 5 ft 7 in Weight 230 lb BMI 36.0 Intake Visit Reasons: OV-B/L knee MRI review Intake Note: Sebas is a 40 year old male who presents today for an MRI review of his bilateral knees. MRI done on 04/04/25. Patient states no change in his symptoms since his last visit, he continues to have ongoing bilateral knee pain. Allergies No Known Allergies Allergy (Verified 05/01/25 09:45) Medication List - Last Reconciled 05/01/25 by AMANUEL Ellis-Angy buprenorphine-naloxone 8-2 mg (Suboxone) 2 film sublingual DAILY dextroamphetamine-amphetamine 20 mg (Adderall) 20 mg PO DAILY quetiapine (Seroquel) 300 mg PO BEDTIME HPI HPI OV-B/L knee MRI review: Details: 40-year-old gentleman returns to the office today for bilateral knee MRI review. He is complaining of his right knee being worse than the left. States in the right knee he has pain with twisting or pivoting motions and this is preventing him from performing daily activities such as climbing, working and going to the gym. He states the symptoms are better than when he initially injured it however it continues to limit him. His left knee has some discomfort however it is not causing significant limitations. [facility] Medical History Acute hypoxemic respiratory failure Multifocal pneumonia Active substance abuse Social History (Updated 03/26/25 @ 11:00 by Teodora Guzman Xander) Household Members: Spouse and Children Housing: House Do you presently have visiting nurse or other home services: No Alcohol intake: current Alcohol intake frequency: does not drink Comment: sitter Patient Tobacco Use Status: Former Tobacco user Tobacco use type: Cigarette Cigarettes Per Day: 20 Years Smoked: 20 Second Hand Smoke Exposure: No Substance Use Type: Crack/Cocaine and Marijuana service: No Current occupation: [employer], right hand dominant Review of Systems Const All systems reviewed & are unremarkable except as noted in HPI and below Physical Exam Vital Signs: BMI result Body Mass Index 36.0 Const General: cooperative, healthy appearing, comfortable, no acute distress, well developed and alert Orientation/consciousness: patient oriented x3 HEENT Head: Yes normal to inspection, Yes normocephalic and Yes atraumatic Eyes General: appearance normal, both eyes and all related structures Neck Neck: Yes normal visual inspection and Yes no lymphadenopathy Resp Effort & Inspection: normal respiratory effort and able to speak in complete sentences Cardio Rate: regular rate Peripheral pulses: Peripheral pulses 2+ throughout GI Inspection: Yes normal to inspection Palpation (GI): Soft to palpation Skin General skin exam: no rashes or lesions noted Neuro General: patient oriented x3 Extrem Other: Right knee is normal to inspection. Trace effusion. Tenderness to palpation over the medial joint line. Mild discomfort with Tisha's. Left knee is normal to inspection with a moderate joint effusion. He has no tenderness to the medial or lateral joint line. He has trace laxity with anterior drawer. Neurovascularly intact. Psych Appearance: grossly normal Mental Status: mental status grossly normal Results Reviewed Results Reviewed: MR knee LT wo con IMPRESSION: 1. There is high-grade tearing of the MCL at the medial femoral attachment. There is edema surrounding the ligament. 2. There is a partial tear injury of the ACL, femoral attachment. There is no complete tear. 3. There is a joint effusion. 4. There is prefemoral edema, suggestive of prepatellar bursitis. 5. There is a strain injury of the popliteus muscle. 6. There is no posterolateral corner injury. 7. Suggestion of posterior root entry zone tear, lateral meniscus. 8. There is no bone marrow contusion or fracture. MR knee RT wo con IMPRESSION: 1. Grade 1 strain MCL. 2. Horizontal cleavage tear of the medial meniscus extending to the free margin of the body and posterior horn. 3. Strain injury of the popliteus muscle. 4. Prepatellar soft tissue edema suggestive of bursitis. 5. There is a joint effusion. 6. There is no posterolateral corner injury. 7. There is no bone marrow contusion or fracture. Assessment & Plan Assessment & Plan (1) Partial tear of anterior cruciate ligament of knee: Comment: Left knee Code(s): S83.519A - Sprain of anterior cruciate ligament of unspecified knee, initial encounter Category: Medical Plan: We discussed the extent of the injury to the left knee and given partial tear and MCL sprain this will be treated nonoperatively. It was explained that even if he were to try and repair of the ACL as a partial tear he would still have some baseline laxity and recovery would be at least 9 months. We will continue to treat this conservatively with physical therapy to help strengthen the quad and surrounding structures. Patient is content with this plan. (2) MCL sprain of left knee: Code(s): S83.412A - Sprain of medial collateral ligament of left knee, initial encounter Category: Medical Plan: Conservative management (3) Right knee meniscal tear: Code(s): S83.206A - Unspecified tear of unspecified meniscus, current injury, right knee, initial encounter Category: Medical Plan: We discussed the extent of the injury to the patient and options available which include surgical intervention. I explained the procedure in detail along with the length of recovery and rehab course. I explained the risk, benefits and alternatives. Risk including, but not limited to infection, blood clots, bleeding, ongoing pain and stiffness. I answered all their questions and with their understanding they have consented to move forward with right knee arthroscopy with Dr Mayorga. The patient will be booked accordingly. Coding Level of Care Code Est Pt Level 4 (12883) Complex EM visit Add On G2211 Diagnoses Partial tear of anterior cruciate ligament of knee S83.519A MCL sprain of left knee S83.412A Right knee meniscal tear S83.206A
[2025-05-01 09:44] VITALS: BMI 36.0
--- OUTSIDE RECORDS SUMMARY | 2025-05-01 10:36 | XMS_ITS | Clinical Summary ---
Author Organization [employer] Address [address] [place] [address] Care Team Providers Care Executive Director Global Brand Marketing Name Role Phone Unavailable Primary Care Provider [...] - 2023-2 5 season) 2024 Influenza Vaccine (Season Ended) 2025 Zoster Vaccines (1 of 2) 02/13/2034 RSV [...] Years) and At-Risk Patients (6 to 49) Years Aged Out No longer eligi ble based [...]
== END 2025-05-01 13:18 | disposition home or self-care (01) ==
LOC: HO.HOS 09:40
PROVIDERS: Visit Provider Physician Assistant
DX: S83.512A Sprain of anterior cruciate ligament of left knee, initial encounter (principal); S83.412A Sprain of medial collateral ligament of left knee, initial encounter; S83.206A Unspecified tear of unspecified meniscus, current injury, right knee, initial encounter
CPT/HCPCS: 99214

== ENCOUNTER → 2025-05-01 09:39 | Outpatient (BNVA) | payer MEDICAID, SELFPAY | PROVIDERS: Visit Provider Physician Assistant | DX: S83.512A Sprain of anterior cruciate ligament of left knee, initial encounter (principal); S83.412A Sprain of medial collateral ligament of left knee, initial encounter; S83.206A Unspecified tear of unspecified meniscus, current injury, right knee, initial encounter | CPT/HCPCS: 99212 ==

== ENCOUNTER → 2025-05-07 08:45 | Day surgery (SDC) | payer MEDICAID, SELFPAY ==
--- NOTE | 2025-05-06 08:26 | P.CONAN_ITS ---
HPI - Anesthesia Eval Consult details Narrative: 40yo M for Right Knee Arthroscopy Hx polu sub PMFSH Active Problems Active Problems: All Active Problems Right knee meniscal tear (Acute) MCL sprain of left knee (Acute) Partial tear of anterior cruciate ligament of knee (Acute) Internal derangement of left knee (Acute) Patellofemoral arthralgia of both knees (Acute) Active substance abuse (Acute) Past Medical History Medical History Acute hypoxemic respiratory failure Multifocal pneumonia Active substance abuse Social History Social History (Updated 03/26/25 @ 11:00 by Teodora Guzman [facility]) Household Members: Spouse and Children Housing: House Do you presently have visiting nurse or other home services: No Alcohol intake: current Alcohol intake frequency: does not drink Comment: sitter Patient Tobacco Use Status: Former Tobacco user Tobacco use type: Cigarette Cigarettes Per Day: 20 Years Smoked: 20 Second Hand Smoke Exposure: No Substance Use Type: Crack/Cocaine and Marijuana service: No Current occupation: [employer], right hand dominant Meds Allergies Allergy/AdvReac Type Severity Reaction Status Date / Time No Known Allergies Allergy Verified 05/01/25 09:45 Home Medications ?Medication ?Instructions ?Recorded ?Confirmed ?Last Taken ?Type buprenorphine 8 mg-naloxone 2 mg 2 film sublingual KACI LY 03/26/25 05/01/25 Unknown History sublingual film (Suboxone) dextroamphetamine-amphetamine 20 20 mg PO DAILY 05/01/25 Unknown History mg tablet (Adderall) quetiapine 300 mg tablet (Seroquel) 300 mg PO BEDTIME 03/26/25 05/01/25 Unknown History Assessment and Plan Assessment Anesthesia Assessment: Chart Reviewed
[2025-05-07 08:08] VITALS: BMI 36.0
[2025-05-07 09:31] LABS: Amphetamine Screen Urine Not Detected (Not Detect); Barbiturates, Urine Not Detected (Not Detect); Benzodiazepines Screen Urine Not Detected (Not Detect); Buprenorphine Scr Positive (Not Detect); Cannabinoid Screen Urine Not Detected (Not Detect); Cocaine Screen Urine POSITIVE (Not Detect); Fentanyl, urine Not Detected (Not Detect); Methadone Screen, Urine Not Detected (Not Detect); Opiate Screen Urine Not Detected (Not Detect); Oxycodone Screen Urine Not Detected (Not Detect); Phencyclidine Screen Urine Not Detected (Not Detect)
--- NOTE | 2025-05-07 09:38 | PC.NURSE ---
patient positve utox cocaine dr saeed aware pt will be cancelled will inform dr dowell and the room
--- NOTE | 2025-05-07 09:48 | PC.NURSE ---
spoke to patient aware of the need to be sober/clean for 10days will be reschedule agreeable to plan
== END | disposition home or self-care (01) ==
LOC: HO.SSS 08:46
PROVIDERS: Nurse Practitioner; Visit Provider Orthopaedic Surgery
DX: S83.241A Other tear of medial meniscus, current injury, right knee, initial encounter (principal); Z53.09 Procedure and treatment not carried out because of other contraindication; R82.5 Elevated urine levels of drugs, medicaments and biological substances
CPT/HCPCS: 80307; J0131; J0690